=== PATIENT | female | born 2000 | race Caucasian/White ===

== ENCOUNTER 2023-09-12 17:54 | Day surgery (SDC) | payer SELFPAY ==
--- NOTE | ~2023-09-12 | US_ITS ---
EXAMINATION: US ABDOMEN LIMITED CLINICAL INFORMATION: Right upper quadrant pain. COMPARISON: None available. TECHNIQUE: Real-time imaging of the right upper quadrant abdominal viscera. FINDINGS: PANCREAS: Normal. LIVER: Normal. The liver is normal in size. The liver contour is normal. Parenchymal echogenicity is normal. No focal hepatic lesion. There is no intrahepatic biliary duct dilatation seen. GALLBLADDER: Impacted calculi are evident in the gallbladder neck, measuring up to 13 x 12 x 8 mm. The gallbladder wall is thickened up to 4 mm. No pericholecystic edema is detected but there is a positive sonographic Emery sign. COMMON BILE DUCT: Normal in caliber measuring 0.4 cm in diameter. RIGHT KIDNEY: Normal. No hydronephrosis. No renal calculi or focal parenchymal lesions. The kidney measures 11.5 cm in maximum dimension. FREE FLUID: None. US/US abdomen limited IMPRESSION: Cholelithiasis with wall thickening and positive Emery's sign indicative of acute cholecystitis.
[2023-09-12 18:02] VITALS: BP 119/64; PULSE 85; RESP 16; TEMP 36.9; O2SAT 99; BMI 33.3
--- NOTE | 2023-09-12 18:06 | ED.ABDPAIN ---
HPI - Abdominal Pain General Chief Complaint: Abdominal Pain Stated Complaint: R side pain Time Seen by Provider: 09/12/23 22:39 Source: patient Mode of arrival: ambulatory Limitations: no limitations History of Present Illness ED Provider: DR. Wahl HPI narrative: 22-year-old female Came in for evaluation of upper abdominal pain for the past 3 days pain is mostly to the right upper quadrant area, pain is worse with pain, pain has been constant but worse today, associated with nausea and vomiting, no fever, no chills, pain is worse with food. Normal bowel movement and passing flatus, no history of intra-abdominal surgery, no dysuria, no frequency urination, no chance of being . Related Data Allergies Allergy/AdvReac Type Severity Reaction Status Date / Time No Known Allergies Allergy Verified 09/12/23 18:08 [No Known Allergies*] Review of Systems Review of Systems All other systems are reviewed and are negative Constitutional: Reports as per HPI and Reports no additional constitutional complaints Eyes: Reports as per HPI and Reports no additional eye complaints Reports system reviewed and no additional complaints, except as documented Cardiovascular: Reports as per HPI and Reports no additional cardiovascular complaints Respiratory: Reports as per HPI and Reports no additional respiratory complaints Gastrointestinal: Reports as per HPI and Reports no additional gastrointestinal complaints Genitourinary: Reports no additional female genitourinary complaints Musculoskeletal: Reports no additional musculoskeletal complaints Skin/Breast: Reports system reviewed and no additional complaints, except as docu Psychiatric: Reports no additional psychiatric complaints Endocrine: Reports no additional endocrine complaints Hematologic/Lymphatic: Reports no additional hematologic/lymphatic complaints Allergic/Immunologic: Reports no additional allergic/immunologic complaints Reports system reviewed and no additional complaints, except as documented and Reports Abnormal speech present [facility] Social History Social History Smoked in Last 30 Days: No Substance Use Type: Marijuana Advance Directives: No Advance Directives Information Provided: No Do you have a plan to hurt others: No Plan Patient : No Physical Exam ED Vital Signs: Vital Signs - 24 hr 09/12/23 18:02 09/12/23 20:46 09/13/23 02:00 Temperature 98.4 F 98.0 F 97.9 F Pulse Rate 85 70 68 Respiratory Rate 16 20 12 Blood Pressure 119/64 126/81 110/46 L Pulse Oximetry 99 100 98 Oxygen Delivery Method Room Air Room Air Room Air 09/13/23 04:00 09/13/23 08:15 09/13/23 10:42 Temperature 98.5 F 98.0 F 98.3 F Pulse Rate 87 64 58 Respiratory Rate 14 16 14 Blood Pressure 106/49 L 108/54 L 124/54 L Pulse Oximetry 100 95 97 Oxygen Delivery Method Room Air Room Air Room Air 09/13/23 11:39 Temperature 98.3 F Pulse Rate 58 Respiratory Rate 14 Blood Pressure 124/54 L Pulse Oximetry Oxygen Delivery Method BMI result Body Mass Index 33.3 Vital signs have been reviewed and appear to be correct. Blood pressure elevated. Heart rate normal. Respiratory rate normal. Temperature normal. Oxygen saturation normal. Appearance: Alert. Oriented X3. No acute distress. Head: Normal external exam. Normocephalic. Atraumatic. No Schmitt signs noted. No raccoon eyes noted Eyes: PERRLA. EOMI. Conjunctiva and sclera normal. Eyelids normal. ENT: TM's Normal. Pharynx normal. Uvula midline. Moist mucous membranes. No trismus noted. No drooling noted. No muffled voice noted. Neck: Normal inspection. Neck supple. FROM. No adenopathy. Thyroid Normal. No meningeal signs. No neck mass noted. CVS: Normal heart rate and rhythm. Heart sound normal. No murmurs noted. Pulses normal throughout. Respiratory: No respiratory distress. Painless inspiration. Breath sounds normal. No wheezes/rales/rhonchi noted. Chest nontender. No accessory muscle usage noted or decreased air movement noted. Abdomen: Severe right upper quadrant tenderness, no rebound tenderness, no guarding. Bowel sounds normal in all 4 quadrants. No distention noted. No organomegaly noted. No visible injury noted. Back: No CVA tenderness. Full range of motion noted. Skin: Skin warm and dry. Normal skin color. Normal skin turgor. No rashes/lesions/lacerations noted. Extremities: No lower extremity edema. Extremities exhibit normal range of motion. Extremities nontender. Neuro: Oriented X 3. Cranial nerve exam: II-XII are grossly intact No motor deficit. No sensory deficit. Reflexes normal. Course Course Course Narrative: This is an RME: Additional HPI, ROS, PE not included below will be deferred to primary provider. RME assessment and note performed by: Susie Hamilton PA-C This is a [id number], with a hx of hypertension, who presents to the ER with complaints of right upper quadrant x 3 days. Plan: Labs, US Reevaluation(s) Reevaluation #1: 22-year-old female with 3 days of right upper quadrant abdominal pain, physical exam and ultrasound is consistent with acute cholecystitis, the case discussed with Dr. Miller covering for General surgery today who advised to keep the patient in the ER then cholecystectomy in the morning. In pain control, hydration, NPO, antibiotic. Time: 22:52 Medical Decision Making Differential Diagnosis Differential Diagnoses: The differential diagnosis associated with the presentation includes (Otitis, acute cholecystitis, cholelithiasis, kidney stone, UTI, pyelonephritis, electrolyte derangement, severe anemia.) Admission/Observation Consideration of admission/observation: Escalation of care including admission/observation considered Consult Healthcare Provider Management of the patient was discussed with: Skin Lap Bonder (Dr. Miller) Lab Data MDM Lab Attestation statement: I reviewed the patient's lab results. 09/12/23 18:31 09/12/23 18:31 Labs: Lab Results 09/12/23 Range/Units 18:31 WBC 10.0 (4.8-10.8) X10*3/uL RBC 4.25 (4.20-5.50) X10*6/uL Hgb 13.6 (12.0-16.0) g/dl Hct 39.2 (37.0-47.0) % MCV 92.2 (80.0-98.0) fL MCH 32.0 (27.0-33.0) pg MCHC 34.7 (31.0-35.0) g/dl RDW 13.2 (11.0-16.0) % Plt Count 229 (160-400) X10*3/uL MPV 10.6 (9.4-12.3) fL Immature Gran % (Auto) 0.4 (0.0-0.4) % Neut % (Auto) 73.8 H (45-73) % Lymph % (Auto) 17.6 L (20-40) % [place] % (Auto) 5.6 (2-11) % Eos % (Auto) 2.4 (0-4) % Baso % (Auto) 0.2 (0-2) % Lymph # (Auto) 1.8 (1.2-4.9) X10*3/uL [place] # (Auto) 0.6 (0.1-1.2) X10*3/uL Eos # (Auto) 0.2 (0.0-0.4) X10*3/uL Baso # (Auto) 0.0 (0.0-0.2) X10*3/uL Abs Immat Gran (auto) 0.04 H (0.00-0.03) X10*3/uL Absolute Neuts (auto) 7.4 (2.0-8.3) x10*3/uL Absolute Nucleated RBC 0.000 (0.0-0.012) X10*3/uL Nucleated RBC % (auto) 0.0 (0.0-0.2) /100WBC Sodium 140 (135-145) mmol/L Potassium 3.6 (3.3-5.1) mmol/L Chloride 108 (96-108) mmol/L Carbon Dioxide 21 L (22-29) mmol/L Anion Gap 15 (12-20) BUN 16 (9-16) mg/dL Creatinine 0.87 (0.5-1.4) mg/dL Estim Creat Clear Calc 119.9 Estimated GFR > 60 Random Glucose 87 (60-115) mg/dL Calcium 10.6 H (8.4-10.2) mg/dL Magnesium 1.8 (1.6-2.6) mg/dL Total Bilirubin 0.4 (0.0-1.0) mg/dL Direct Bilirubin 0.1 (0.0-0.5) mg/dL AST 14 (5-31) U/L ALT 15 (0-31) U/L Alkaline Phosphatase 72 (39-117) U/L Total Protein 8.0 (6.5-8.0) g/dL Albumin 4.8 (3.5-5.0) g/dL Lipase 19 (8-78) U/L Beta HCG, Quant < 2 mIU/mL Independent Interpretation I performed an independent interpretation of an: Ultrasound (Cholelithiasis with wall thickening and positive Emery's sign indicative of acute cholecystitis.) Radiology Impression Discussion of test interpretation with radiology: I have reviewed the radiologist's reading. Medications Administered Generic Name Dose Route Start Last Admin Trade Name Freq PRN Reason Stop Dose Admin Morphine Sulfate 4 mg 09/13/23 09:48 09/13/23 10:56 Morphine Sulfate 4 Mg/Ml Cartridge IVPUSH 4 mg Q4H PRN Administration Pain, Severe (Pain Scale 7-10) Protocol Ondansetron HCl 4 mg 09/13/23 09:48 09/13/23 10:56 Ondansetron Hcl 4 Mg/2 Ml Vial IVPUSH 4 mg Q6H PRN Administration Nausea and Vomiting Discontinued Medications Generic Name Dose Route Start Last Admin Trade Name Freq PRN Reason Stop Dose Admin Hydromorphone HCl 1 mg 09/13/23 00:37 09/13/23 00:52 Hydromorphone Hcl 1 Mg/Ml Syringe IVPUSH 09/13/23 00:38 1 mg ONCE ONE Administration Protocol Sodium Chloride 1,000 mls @ 999 mls/hr 09/12/23 22:48 09/13/23 00:23 Ns IV 09/12/23 23:48 Infused .Q1H1M ONE Infusion Piperacillin Sod/Tazobactam 50 mls @ 100 mls/hr 09/12/23 22:56 09/12/23 23:54 Sod 3.375 gm/ Sodium Chloride IV 09/12/23 23:25 Infused ONCE ONE Infusion Ketorolac Tromethamine 30 mg 09/12/23 22:48 09/12/23 23:20 Ketorolac Tromethamine 30 Mg/Ml Vial IVPUSH 09/12/23 22:49 30 mg ONCE ONE Administration Morphine Sulfate 2 mg 09/12/23 22:48 09/12/23 23:20 Morphine Sulfate 2 Mg/Ml Cartridge IVPUSH 09/12/23 22:49 2 mg ONCE ONE Administration Protocol Ondansetron HCl 4 mg 09/13/23 00:56 09/13/23 01:00 Ondansetron Hcl 4 Mg/2 Ml Vial IVPUSH 09/13/23 00:57 4 mg ONCE ONE Administration Discharge Plan Discharge Clinical Impression: Abdominal pain, Acute cholecystitis Patient Disposition: Admitted As Inpatient Print Language: Greenlandic
[2023-09-12 18:36] LABS: MANUAL DIFF FLAG NO
[2023-09-12 18:38] LABS: Basophils Percent Auto 0.2 % (0-2); Eosinophils Absolute Auto 0.2 X10*3/uL (0.0-0.4); Eosinophils Percent Auto 2.4 % (0-4); Hematocrit 39.2 % (37.0-47.0); Hemoglobin 13.6 g/dl (12.0-16.0); Imm Gran Abs Auto 0.04 X10*3/uL (0.00-0.03); Imm Gran Pct Auto 0.4 % (0.0-0.4); Lymphocytes Absolute Auto 1.8 X10*3/uL (1.2-4.9); Lymphocytes Percent Auto 17.6 % (20-40); Mean Corpuscular HGB Conc 34.7 g/dl (31.0-35.0); Mean Corpuscular Volume 92.2 fL (80.0-98.0); Mean Platelet Volume 10.6 fL (9.4-12.3); Monocytes Absolute Auto 0.6 X10*3/uL (0.1-1.2); Monocytes Percent Auto 5.6 % (2-11); Neutrophils Absolute Auto 7.4 x10*3/uL (2.0-8.3); Neutrophils Percent Auto 73.8 % (45-73); Platelet Count 229 X10*3/uL (160-400); Red Blood Count 4.25 X10*6/uL (4.20-5.50); Red Cell Distribution Width 13.2 % (11.0-16.0)
[2023-09-12 18:56] LABS: Alanine Aminotransferase 15 U/L (0-31); Albumin Level 4.8 g/dL (3.5-5.0); Alkaline Phosphatase 72 U/L (39-117); Anion Gap 15 (12-20); Aspartate Amino Transferase 14 U/L (5-31); Bilirubin Direct 0.1 mg/dL (0.0-0.5); Bilirubin Total 0.4 mg/dL (0.0-1.0); Blood Urea Nitrogen 16 mg/dL (9-16); Calcium 10.6 mg/dL (8.4-10.2); Carbon Dioxide 21 mmol/L (22-29); Chloride 108 mmol/L (96-108); Creatinine Clr Calc Pharmacy 119.9; Estimated Glomerular Filt Rate > 60; Glucose Random 87 mg/dL (60-115); Lipase 19 U/L (8-78); Magnesium 1.8 mg/dL (1.6-2.6); Potassium 3.6 mmol/L (3.3-5.1); Sodium 140 mmol/L (135-145)
[2023-09-12 19:04] LABS: HCG Quantitative < 2 mIU/mL
[2023-09-12 20:46] VITALS: BP 126/81; PULSE 70; RESP 20; TEMP 36.7; O2SAT 100
[2023-09-12] MEDS: 0.9 % Sodium Chloride 1,000 ML 999 ML IV (23:20)
[2023-09-12] MEDS: Ketorolac Tromethamine 30 MG/ML VIAL IVPUSH (23:20)
[2023-09-12] MEDS: Morphine Sulfate 2 MG/ML CARTRIDGE IVPUSH (23:20)
[2023-09-12] MEDS: Piperacillin Sodium/Tazobactam 3.375 GM in 0.9 % Sodium Chloride 50 ML IV (23:20)
[2023-09-13] VITALS (21 sets, daily range): BP systolic 98–165; BP diastolic 44–93; PULSE 58–96; RESP 6–22; TEMP 36.1–36.9; O2SAT 95–100
[2023-09-13] MEDS: HYDROmorphone HCl 1 MG/ML SYRINGE IVPUSH (00:52)
[2023-09-13] MEDS: ondansetron HCL 4 MG/2 ML VIAL IVPUSH ×3 (01:00→15:32)
--- NOTE | 2023-09-13 08:55 | PM.HPGS ---
History of Present Illness History of Present Illness Date of Service: 09/13/23 Chief complaint: R side pain Narrative: Lillie Drew is a 22 year old female with a history of biliary colic who presents here with similar episode about upper quadrant/epigastric pain. Spring going on for few days time. Because of progression of symptoms he presents to the emergency department. Workup including sonogram demonstrated findings consistent with acute cholecystitis. Patient has lost approximately 70 lb since February with a weight loss program. She otherwise has regular bowel habits. No other GI issues or complaints. She has never been jaundiced before. Chart was reviewed and patient evaluated [facility] Social History Social History Smoked in Last 30 Days: No Substance Use Type: Marijuana Advance Directives: No Advance Directives Information Provided: No Do you have a plan to hurt others: No Plan Patient : No Meds Allergies Allergy/AdvReac Type Severity Reaction Status Date / Time No Known Allergies Allergy Verified 09/12/23 18:08 [No Known Allergies*] Physical Exam Vital Signs: Vital Signs: Last Vital Signs Temp 98.0 F 09/13/23 08:15 Pulse 64 09/13/23 08:15 Resp 16 09/13/23 08:15 BP 108/54 L 09/13/23 08:15 Pulse Ox 95 09/13/23 08:15 O2 Del Method Room Air 09/13/23 08:15 BMI result Body Mass Index 33.3 Eyes: Other: Anicteric Chest: Other: Chest breath sounds bilaterally, HS 1 in 2 GI: Other: Corpulent, soft, marked right upper quadrant tenderness and positive Emery sign Results Results Labs: Short CBC 09/12/23 Range/Units 18:31 WBC 10.0 (4.8-10.8) X10*3/uL Hgb 13.6 (12.0-16.0) g/dl Hct 39.2 (37.0-47.0) % Plt Count 229 (160-400) X10*3/uL BMP 09/12/23 18:31 Sodium 140 Potassium 3.6 Chloride 108 Carbon Dioxide 21 L BUN 16 Creatinine 0.87 Calcium 10.6 H Liver Function 09/12/23 Range/Units 18:31 Total Bilirubin 0.4 (0.0-1.0) mg/dL Direct Bilirubin 0.1 (0.0-0.5) mg/dL AST 14 (5-31) U/L ALT 15 (0-31) U/L Alkaline Phosphatase 72 (39-117) U/L Albumin 4.8 (3.5-5.0) g/dL Assessment and Plan (1) Acute cholecystitis: Status: Acute Plan Risks, benefits, alternatives laparoscopic possible open cholecystectomy reviewed with the patient included but not limited to bleeding, infection, numbness, pain, scarring, bowel or bile duct injury or leak and the patient wished to proceed. All questions answered. Arrangements were made for this for today as an add on case Quality Stroke Does the patient have a stroke diagnosis?: No VTE Prior VTE?: No VTE Risk Level:: Surgical - low VTE Device Contraindication: Treatment Not Indicated VTE Drug Contraindication: Treatment Not Indicated Procedures Date of Service Date of Service: 09/13/23
[2023-09-13] MEDS: Morphine Sulfate 4 MG/ML CARTRIDGE IVPUSH (10:56)
--- NOTE | 2023-09-13 11:38 | PC.NURSE ---
RN to RN report given to pre-op RN, will tiger with OR time.
--- NOTE | 2023-09-13 13:09 | HO.ANESPROP2 ---
[facility], [facility] Active Problems Active Problems: All Active Problems Acute cholecystitis (Acute) Abdominal pain (Acute) Past Medical History Medical History (Updated 09/13/23 @ 12:37 by Balbina Joyce) Arrhythmia Functional capacity: independent ambulation Patient : No Family History Family history of problems with anesthesia: No Surgical History History of Problems with Anesthesia: No Social History Social History Patient Tobacco Use Status: Never used Tobacco Smoked in Last 30 Days: No Use of substances other than those prescribed or required for medical reasons: Yes Substance Use Type: Marijuana Are you DNR?: No Advance Directives: No Advance Directives Information Provided: No Do you have a plan to hurt others: No Plan Patient : No Meds Allergies Allergy/AdvReac Type Severity Reaction Status Date / Time No Known Allergies Allergy Verified 09/12/23 18:08 [No Known Allergies*] Active Medications: Current Medications Morphine Sulfate (Morphine Sulfate 4 Mg/Ml Cartridge) 4 mg IVPUSH Q4H PRN; Protocol PRN Reason: Pain, Severe (Pain Scale 7-10) Last Admin: 09/13/23 10:56 Dose: 4 mg Ondansetron HCl (Ondansetron Hcl 4 Mg/2 Ml Vial) 4 mg IVPUSH Q6H PRN PRN Reason: Nausea and Vomiting Last Admin: 09/13/23 10:56 Dose: 4 mg Exam Height,Weight and Vital Signs: Height 5 ft 7 in Weight 96.5 kg Last Vital Signs Temp 97.3 F 09/13/23 12:47 Pulse 60 09/13/23 12:47 Resp 16 09/13/23 12:47 BP 137/91 H 09/13/23 12:47 Pulse Ox 99 09/13/23 12:47 O2 Del Method Room Air 09/13/23 12:00 Pertinent Lab Results Pertinent Lab Results: Laboratory Tests 09/12/23 18:31 WBC 10.0 RBC 4.25 Hgb 13.6 Hct 39.2 MCV 92.2 MCH 32.0 MCHC 34.7 RDW 13.2 Plt Count 229 MPV 10.6 Immature Gran % (Auto) 0.4 Neut % (Auto) 73.8 H Lymph % (Auto) 17.6 L [place] % (Auto) 5.6 Eos % (Auto) 2.4 Baso % (Auto) 0.2 Lymph # (Auto) 1.8 [place] # (Auto) 0.6 Eos # (Auto) 0.2 Baso # (Auto) 0.0 Abs Immat Gran (auto) 0.04 H Absolute Neuts (auto) 7.4 Absolute Nucleated RBC 0.000 Nucleated RBC % (auto) 0.0 Sodium 140 Potassium 3.6 Chloride 108 Carbon Dioxide 21 L Anion Gap 15 BUN 16 Creatinine 0.87 Estim Creat Clear Calc 119.9 Estimated GFR > 60 Random Glucose 87 Calcium 10.6 H Magnesium 1.8 Total Bilirubin 0.4 Direct Bilirubin 0.1 AST 14 ALT 15 Alkaline Phosphatase 72 Total Protein 8.0 Albumin 4.8 Lipase 19 Beta HCG, Quant < 2 Airway Mallampati Class: III TM Dist: >3cm Neck ROM: Full Heart: RRR Lungs: CTA Assessment and Plan Assessment Anesthesia Assessment: Anesthesia Plan Discussed and Smoking Cess. Discussed Final Anesthetic Review Family History of Problems with Anesthesia: No History of Problems with Anesthesia: No NPO: Yes ASA Class: III Final Preanesthetic Review: Meds/Allgs Chart Reviewed, Consent Obtained/Reviewed and Anes Risks/Benef Reviewed Patient Risk: Intermediate Procedure Risk: Intermediate Anesthetic Plan Anesthetic Plan: GA Disposition: Standard PACU
--- NOTE | 2023-09-13 15:09 | W.PM.OPN ---
Operative Note Operative Note Date of Service: 09/13/23 Narrative: Preoperative diagnosis: [] Acute cholecystitis Postop diagnosis: [] The same Procedure [] laparoscopic cholecystectomy Surgeon: [] Paul Closing Supervisor: [] Annie Type of Anesthesia: [] General Indication for surgery: [] Markedly edematous turgid gallbladder with omental adhesions to it. Intrahepatic gallbladder. Corpulent abdomen. Findings: [] Patient brought to the operating room, placed on operative table supine position, after an adequate level of general anesthesia was induced, the patient's abdomen was prepped and draped in usual sterile fashion. Using a supraumbilical curvilinear incision, Sears technique was used to insufflate abdominal cavity to 15 mm of CO2. Upper midline and right subcostal ports were placed under direct laparoscopic view, and findings were as noted above. Gallbladder was initially decompressed with an aspirating device because of its marked turgidity. It was then grasped with laparoscopic graspers, and retracted superiorly and laterally. Omental adhesions were swept off the hilum where the cystic artery and cystic duct were each identified, circumferentially skeletonized, traced directly into the gallbladder, and critical view obtained. Common bile duct was also identified and preserved throughout the procedure. Cystic artery and cystic duct were each clipped proximally x2, distally x1, and transected gallbladder was then cauterized in the gallbladder fossa using Bovie. Specimen was placed in an Endo-Catch bag, a retrieved through the umbilical port. Abdominal cavity was copiously irrigated, and secured hemostasis. All ports removed under direct laparoscopic view. Wounds were closed in the following manner; umbilical wound has fascia reapproximated using interrupted 0 Vicryl sutures. Skin wounds were closed in subcuticular 4-0 Vicryl sutures followed by Steri-Strips and sterile dressings. Wounds were infiltrated 0.5% Marcaine at completion. Sponge, needle, and instrument counts reported correct. Patient tolerated the procedure well and emerged from anesthesia stable condition. EBL minimal
[2023-09-13] MEDS: fentaNYL citrate/PF 100 MCG/2 ML VIAL 25 MCG IVPUSH ×4 (15:25→15:50)
[2023-09-13] MEDS: HYDROmorphone HCl 0.5 MG/0.5 ML SYRINGE 0.25 MG IVPUSH ×4 (15:35→16:40)
[2023-09-13] MEDS: droPERidol 5 MG/2 ML VIAL 0.625 MG IVPUSH (15:42)
[2023-09-13] MEDS: Ketorolac Tromethamine 15 MG/ML VIAL IVPUSH (16:00)
== END 2023-09-13 17:29 | disposition home or self-care (01) ==
LOC: HO.ED 09-13 11:54 → HO.SSS 09-13 13:15
PROVIDERS: Physician Assistant Medical; Emergency Provider Emergency Medicine Emergency Medical Services; Visit Provider Surgery
PROC: 0FT44ZZ Resection of Gallbladder, Percutaneous Endoscopic Approach (ICD-10-PCS; CPT 47562; principal; 2023-09-13 14:00)
DX: K80.00 Calculus of gallbladder with acute cholecystitis without obstruction (principal); R10.10 Upper abdominal pain, unspecified; I10 Essential (primary) hypertension
CPT/HCPCS: 47562; 36415; 76705; 80048; 80076; 83690; 83735; 84702; 85025; 88304; 96361; 96365; 96366; 96375; 99285; J0131; J0690; J1100; J1170; J1790; J1885; J2250; J2270; J2405; J2543; J2704; J2795; J3010

== ENCOUNTER → 2023-09-12 18:28 | Outpatient (BNV) | payer SELFPAY | PROVIDERS: Emergency Provider Emergency Medicine Emergency Medical Services; Visit Provider Surgery | DX: K81.0 Acute cholecystitis (principal) | CPT/HCPCS: 99285 ==

== ENCOUNTER → 2023-09-13 13:14 | Outpatient (BNV) | payer SELFPAY | PROVIDERS: Emergency Provider Emergency Medicine Emergency Medical Services; Visit Provider Surgery | DX: K81.0 Acute cholecystitis (principal) | CPT/HCPCS: 47562 ==

== ENCOUNTER 2023-09-14 04:38 | Observation (INO) | payer SELFPAY ==
[2023-09-14] VITALS (9 sets, daily range): BP systolic 108–135; BP diastolic 51–74; PULSE 58–84; RESP 16–20; TEMP 36–37.1; O2SAT 94–100; BMI 33.3; BMI 34.0
--- NOTE | ~2023-09-14 | XR_ITS ---
EXAMINATION: XR CHEST CLINICAL INFORMATION: Right pneumothorax COMPARISON: Abdomen CT from 09/14/2023. CXR from 02/29/2016. TECHNIQUE: Frontal view of the chest was obtained. FINDINGS: Lungs are well expanded and clear. Cardiac silhouette has normal size and contour. Pulmonary vascular pattern is normal. Trace right apical pneumothorax is visualized. Again noted is a postoperative pneumoperitoneum. Skeletal structures are unremarkable. XR/XR chest 1V IMPRESSION: * Trace right apical pneumothorax. * Postoperative pneumoperitoneum.
--- NOTE | ~2023-09-14 | XR_ITS ---
EXAMINATION: XR CHEST CLINICAL INFORMATION: Follow-up right pneumothorax. COMPARISON: None available. TECHNIQUE: Frontal view of the chest was obtained. FINDINGS: A less than 5% right apical pneumothorax appears unchanged compared with one day prior. Mild elevation of right hemidiaphragm. Question trace right subdiaphragmatic air, improved compared with one day prior. Status post cholecystectomy. No other significant abnormality is noted involving the heart, lungs, mediastinum, bony thorax or soft tissues. XR/XR chest 1V IMPRESSION: Findings as above.
--- NOTE | ~2023-09-14 | CT_ITS ---
EXAMINATION: CT ABDOMEN AND PELVIS WITHOUT CONTRAST CLINICAL INFORMATION: Abdominal pain. Postoperative for 2 days. COMPARISON: Ultrasound exam from 09/12/2023. TECHNIQUE: Multidetector volumetric imaging was performed from the superior aspect of the liver through the pubic symphysis. Sagittal and coronal reformatted images were obtained on the technologist's workstation. This CT examination was performed using dose optimization techniques as appropriate, variously including the following: *Automated exposure control *Adjustment of mA and/or kV according to patient size (this includes techniques or standardized protocols for targeted exams where dose is matched to indication/reason for exam; i.e. extremities or head) *Use of iterative reconstruction technique DLP: 762 mGy-cm FINDINGS: LUNG BASES: Small right pneumothorax is partially included in [id number]. HEPATOBILIARY: Liver has normal size, shape, and attenuation. Gallbladder is surgically absent. As expected in a postoperative patient, a trace amount of fluid and mild fat stranding are seen at the gallbladder fossa. No dilated bile ducts. PANCREAS: No edema, pancreatic ductal dilatation or mass. SPLEEN: Normal. ADRENAL GLANDS: Normal. KIDNEYS AND URETERS: Kidneys have normal size and cortical thickness. No perinephric fluid collection, urolithiasis or hydroureteronephrosis. BLADDER: Normal. BOWEL AND PERITONEUM: Stomach and small bowel are unremarkable. No dilated loops. The appendix is normal. No overt colonic wall thickening or mesenteric fat stranding. No abdominal abscess or hemoperitoneum. Small volume of postoperative pneumoperitoneum is present. ABDOMINAL WALL: There is postoperative edema of the midline abdominal wall, most pronounced around the region of the umbilicus. Postoperative foci of gas are present in the subcutaneous tissues of the abdominal wall. VASCULATURE: Unremarkable. LYMPH NODES: No pathologic sized lymph nodes in the abdomen or pelvis. No inguinal lymphadenopathy. PELVIC VISCERA: The anteflexed, anteverted uterus is normal. Ovaries appear to be normal for age. The largest visible follicle in the left ovary is approximately 1.5 cm. MUSCULOSKELETAL: Old healed fracture right anterolateral seventh rib. CT/CT abdomen pelvis wo IV con IMPRESSION: * Small volume of pneumoperitoneum is present in this postoperative patient. * There is no abnormal fluid collection or hematoma in the right upper quadrant, status post cholecystectomy. * A small right-sided pneumothorax is partially included in [id number]. Recommend chest radiographic follow-up. The critical test result of the right-sided pneumothorax was discussed with Rebekah Davis MD, at 9:02 AM on 09/14/2023 and it was ascertained that the content and the importance of the findings was understood at the time of the direct communication.
--- NOTE | 2023-09-14 05:13 | PC.NURSE ---
pt moaning and yelling, pt given a pillow to hold against her abd, to help with the pain, informed pt, not to hold her breathe, it made the pain worse.
--- NOTE | 2023-09-14 05:35 | PC.NURSE ---
pt vomited, green bile, pt dry heaving, when not vomiting.
[2023-09-14] MEDS: ondansetron HCL 4 MG/2 ML VIAL IVPUSH (05:40)
--- NOTE | 2023-09-14 05:46 | PC.NURSE ---
pt medicated for vomiting, pt now has the hiccups
--- NOTE | 2023-09-14 05:55 | ED_ITS ---
HPI - Abdominal Pain General Chief Complaint: Abdominal Pain Stated Complaint: post op pain, diff breathing Time Seen by Provider: 09/14/23 05:54 Source: patient Mode of arrival: ambulatory Limitations: no limitations History of Present Illness ED Provider: kai UP narrative: Patient is status post cholecystectomy done yesterday at 14:00 went home woke up started vomiting since 2229 with increased abdominal pain very uncomfortable on arrival no fever no chills Related Data Previous Rx's ?Medication ?Instructions ?Recorded hydrocodone 5 mg-acetaminophen 325 1 tab PO Q4-6H PRN pain #30 tabs 09/13/23 mg tablet Allergies Allergy/AdvReac Type Severity Reaction Status Date / Time No Known Allergies Allergy Verified 09/14/23 04:47 [No Known Allergies*] Review of Systems Review of Systems Yes all other systems are reviewed and are negative [facility] Past Medical History Medical History Ovarian cyst Arrhythmia Social History Social History Patient Tobacco Use Status: Never used Tobacco Smoked in Last 30 Days: No Use of substances other than those prescribed or required for medical reasons: Yes Substance Use Type: Marijuana Advance Directives: No Patient : No Physical Exam ED Vital Signs: Vital Signs - 24 hr 09/14/23 04:41 09/14/23 06:33 Temperature 97.7 F 98.7 F Pulse Rate 69 63 Respiratory Rate 20 16 Blood Pressure 125/74 135/73 Pulse Oximetry 100 97 Oxygen Delivery Method Room Air Room Air BMI result Body Mass Index 33.3 Appearance: Alert. Oriented X3. In moderate distress. Eyes: No pallor or icterus ENT: Pharynx normal. Oral Mucosa moist Neck: Normal inspection. Neck supple. CVS: Normal heart rate and rhythm. Pulses normal. Respiratory: No respiratory distress. Equal air entry bilateral, no wheezing/rales/rhonchi Abdomen: Soft diffuse tenderness no rebound tenderness or guarding Bowel sounds are present, no mass palpable, no CVA tenderness Skin: Skin warm and dry. Normal skin color. Normal skin turgor. Extremities: No lower extremity edema. No calf tenderness Neuro: Oriented X 3. Medical Decision Making Medical Decision Making [facility] Narrative: Patient is post cholecystectomy with diffuse abdominal pain with vomiting labs are stable with slight leukocytosis patient has had repeated episodes of vomiting CT scan report is pending but I could not visualize anything acute patient has received IV fluids symptomatic treatment for vomiting and pain patient is signed out to Dr. Hankins Differential Diagnosis Differential Diagnoses: The differential diagnosis associated with the presentation includes Acute pancreatitis/gastritis Lab Data MDM Lab Attestation statement: I reviewed the patient's lab results. 09/14/23 06:32 09/14/23 06:26 Labs: Lab Results 09/14/23 09/14/23 Range/Units 06:26 06:32 WBC 15.4 H (4.8-10.8) X10*3/uL RBC 3.95 L (4.20-5.50) X10*6/uL Hgb 12.8 (12.0-16.0) g/dl Hct 36.1 L (37.0-47.0) % MCV 91.4 (80.0-98.0) fL MCH 32.4 (27.0-33.0) pg MCHC 35.5 H (31.0-35.0) g/dl RDW 13.0 (11.0-16.0) % Plt Count 195 (160-400) X10*3/uL MPV 11.0 (9.4-12.3) fL Immature Gran % (Auto) 0.8 H (0.0-0.4) % Neut % (Auto) 85.7 H (45-73) % Lymph % (Auto) 5.5 L (20-40) % [place] % (Auto) 7.9 (2-11) % Eos % (Auto) 0.0 (0-4) % Baso % (Auto) 0.1 (0-2) % Lymph # (Auto) 0.8 L (1.2-4.9) X10*3/uL [place] # (Auto) 1.2 (0.1-1.2) X10*3/uL Eos # (Auto) 0.0 (0.0-0.4) X10*3/uL Baso # (Auto) 0.0 (0.0-0.2) X10*3/uL Abs Immat Gran (auto) 0.13 H (0.00-0.03) X10*3/uL Absolute Neuts (auto) 13.2 H (2.0-8.3) x10*3/uL Absolute Nucleated RBC 0.000 (0.0-0.012) X10*3/uL Nucleated RBC % (auto) 0.0 (0.0-0.2) /100WBC Sodium 140 (135-145) mmol/L Potassium 3.6 (3.3-5.1) mmol/L Chloride 108 (96-108) mmol/L Carbon Dioxide 20 L (22-29) mmol/L Anion Gap 16 (12-20) BUN 10 (9-16) mg/dL Creatinine 0.76 (0.5-1.4) mg/dL Estim Creat Clear Calc 137.2 Estimated GFR > 60 Random Glucose 133 H (60-115) mg/dL Calcium 10.0 (8.4-10.2) mg/dL Total Bilirubin 0.8 (0.0-1.0) mg/dL AST 73 H (5-31) U/L ALT 97 H (0-31) U/L Alkaline Phosphatase 88 (39-117) U/L Total Protein 7.2 (6.5-8.0) g/dL Albumin 4.3 (3.5-5.0) g/dL Lipase 9 (8-78) U/L Medications Administered Discontinued Medications Generic Name Dose Route Start Last Admin Trade Name Freq PRN Reason Stop Dose Admin Sodium Chloride 1,000 mls @ 999 mls/hr 09/14/23 05:56 09/14/23 06:06 Ns IV 09/14/23 06:56 999 mls/hr .Q1H1M ONE Administration Morphine Sulfate 4 mg 09/14/23 05:56 09/14/23 06:05 Morphine Sulfate 4 Mg/Ml Cartridge IVPUSH 09/14/23 05:57 4 mg ONCE ONE Administration Protocol Ondansetron HCl 4 mg 09/14/23 05:34 09/14/23 05:40 Ondansetron Hcl 4 Mg/2 Ml Vial IVPUSH 09/14/23 05:35 4 mg ONCE ONE Administration Discharge Plan Discharge Clinical Impression: Abdominal pain Patient Disposition: Still a Patient Prescriptions: No Action hydrocodone-acetaminophen 5-325 mg tablet 1 tab PO Q4-6H PRN (Reason: pain) Qty: 30 0RF Rx Instructions: Partial Fill upon patient request. Print Language: [place] Irish
[2023-09-14] MEDS: Morphine Sulfate 4 MG/ML CARTRIDGE IVPUSH ×2 (06:05→07:18)
[2023-09-14] MEDS: 0.9 % Sodium Chloride 1,000 ML 999 ML IV (06:06)
[2023-09-14 06:36] LABS: MANUAL DIFF FLAG NO
[2023-09-14 06:44] LABS: Basophils Percent Auto 0.1 % (0-2); Hematocrit 36.1 % (37.0-47.0); Hemoglobin 12.8 g/dl (12.0-16.0); Imm Gran Abs Auto 0.13 X10*3/uL (0.00-0.03); Imm Gran Pct Auto 0.8 % (0.0-0.4); Lymphocytes Absolute Auto 0.8 X10*3/uL (1.2-4.9); Lymphocytes Percent Auto 5.5 % (20-40); Mean Corpuscular HGB Conc 35.5 g/dl (31.0-35.0); Mean Corpuscular Hemoglobin 32.4 pg (27.0-33.0); Mean Corpuscular Volume 91.4 fL (80.0-98.0); Monocytes Absolute Auto 1.2 X10*3/uL (0.1-1.2); Monocytes Percent Auto 7.9 % (2-11); Neutrophils Absolute Auto 13.2 x10*3/uL (2.0-8.3); Neutrophils Percent Auto 85.7 % (45-73); Platelet Count 195 X10*3/uL (160-400); Red Blood Count 3.95 X10*6/uL (4.20-5.50); White Blood Count 15.4 X10*3/uL (4.8-10.8)
[2023-09-14 06:51] LABS: Alanine Aminotransferase 97 U/L (0-31); Albumin Level 4.3 g/dL (3.5-5.0); Alkaline Phosphatase 88 U/L (39-117); Anion Gap 16 (12-20); Aspartate Amino Transferase 73 U/L (5-31); Bilirubin Total 0.8 mg/dL (0.0-1.0); Blood Urea Nitrogen 10 mg/dL (9-16); Carbon Dioxide 20 mmol/L (22-29); Chloride 108 mmol/L (96-108); Creatinine Clr Calc Pharmacy 137.2; Estimated Glomerular Filt Rate > 60; Glucose Random 133 mg/dL (60-115); Lipase 9 U/L (8-78); Potassium 3.6 mmol/L (3.3-5.1); Sodium 140 mmol/L (135-145); Total Protein 7.2 g/dL (6.5-8.0)
--- NOTE | 2023-09-14 06:54 | PC.NURSE ---
report given to Dior MELTON
[2023-09-14] MEDS: LORazepam 2 MG/ML VIAL IVPUSH (07:19)
--- NOTE | 2023-09-14 07:27 | PC.NURSE ---
at bedside, patient awoke have upper abdominal pain and burning in her throat. Medicated as ordered per apr, awaiting improvement in symptoms
[2023-09-14] MEDS: Famotidine/PF 20 MG/2 ML VIAL IVPUSH (08:01)
[2023-09-14] MEDS: Lactated Ringers 1,000 ML 125 ML IVCONT ×2 (08:01→17:41)
--- NOTE | 2023-09-14 09:53 | PM.HPGS ---
History of Present Illness History of Present Illness Date of Service: 09/14/23 Chief complaint: post op pain Narrative: Lillie Drew is a 22 year old female with PMH of hypertension who underwent laparoscopic cholecystectomy yesterday for acute cholecystitis. The procedure itself was uncomplicated and she was discharged to home following. She reports severe pain at the umbilical and epigastric incision sites following the procedure. She took the oral narcotic with only partial relief of the pain for an hour. She then developed severe pain and and nausea and multiple episodes of vomiting which further exacerbated the pain. She had no improvement in her symptoms throughout the night which prompted her to seek care in the ED. Work up included CBC, BMP, LFTs which was significant for a leukocytosis of 15.4. Total bilirubin normal. CT scan abd/pelvis showed no abnormal fluid collection in the right upper quadrant, status post cholecystectomy, small right-sided pneumothorax is partially included in [id number]. She has not been able to keep down any PO intake. She continues to c/o severe pain and is unable to take deep breaths due to pain. She denies overt shortness of breath, cough. She was able to ambulate but reports difficulty due to pain. She denies hematemesis, diarrhea, fevers, chills, yellowing o the skin, back pain. Review of Systems Constitutional: Constitutional: Denies chills and Denies fever(s) ENT: Denies dizziness Cardiovascular: Cardiovascular: Denies chest pain, Denies palpitations and Denies dyspnea Respiratory: Respiratory: Denies cough and Denies dyspnea Gastrointestinal: Gastrointestinal: Reports as per HPI Genitourinary: Genitourinary: Denies dysuria Integumentary/Breasts: Skin/Breast: Denies rash and Denies jaundice Neurologic: Denies dizziness Endocrine: Endocrine: Denies palpitations [facility] Past Medical History Medical History Ovarian cyst Arrhythmia Social History Social History Patient Tobacco Use Status: Never used Tobacco Smoked in Last 30 Days: No Use of substances other than those prescribed or required for medical reasons: Yes Substance Use Type: Marijuana Advance Directives: No Patient : No Meds Allergies Allergy/AdvReac Type Severity Reaction Status Date / Time No Known Allergies Allergy Verified 09/14/23 04:47 [No Known Allergies*] Active Medications: Current Medications Calcium Carbonate (Calcium Carbonate 750 Mg Tab.Chew) 750 mg PO Q4H PRN PRN Reason: Heartburn Chlorpromazine HCl (Chlorpromazine Hcl 25 Mg Tablet) 25 mg PO ONCE ONE Stop: 09/14/23 09:53 Docusate Sodium (Docusate Sodium 100 Mg Capsule) 100 mg PO BID [facility] Hydromorphone HCl (Hydromorphone Hcl 1 Mg/Ml Syringe) 0.5 mg IVPUSH Q4H PRN; Protocol PRN Reason: Pain, Severe (Pain Scale 7-10) Lactated Ringer's (Lr) 1,000 mls @ 125 mls/hr IVCONT .Q8H [facility] Last Admin: 09/14/23 08:01 Dose: 125 mls/hr Acetaminophen (Ofirmev) 1,000 mg in 100 mls @ 400 mls/hr IV Q6H [facility] Magnesium Hydroxide (Milk Of Magnesia 30 Ml Oral.Susp) 30 ml PO DAILY PRN PRN Reason: Constipation Melatonin (Melatonin 3 Mg Tablet) 6 mg PO BEDTIME PRN PRN Reason: Insomnia Morphine Sulfate (Morphine Sulfate 4 Mg/Ml Cartridge) 4 mg IVPUSH Q2H PRN; Protocol PRN Reason: Pain, Severe (Pain Scale 7-10) Ondansetron HCl (Ondansetron Hcl 4 Mg/2 Ml Vial) 4 mg IVPUSH Q8H PRN PRN Reason: Nausea and Vomiting Oxycodone HCl (Oxycodone Hcl Immed Release 5 Mg Tablet) 5 mg PO Q4H PRN PRN Reason: Pain, Moderate(Pain Scale 4-6) Promethazine HCl (Promethazine Hcl 25 Mg Tablet) 25 mg PO Q6H PRN PRN Reason: Nausea Sodium Chloride (0.9 % Sodium Chloride Flush 3 Ml Syringe) 3 ml IVFLUSH QSHIFT [facility] Physical Exam Vital Signs: Vital Signs: Last Vital Signs Temp 97.9 F 09/14/23 08:53 Pulse 58 09/14/23 08:53 Resp 16 09/14/23 08:53 BP 120/59 L 09/14/23 08:53 Pulse Ox 94 09/14/23 08:53 O2 Del Method Room Air 09/14/23 08:53 BMI result Body Mass Index 33.3 Const: Other: uncomfortable appearing General: no acute distress and alert Orientation/consciousness: patient oriented x3 Resp: Effort & Inspection: normal respiratory effort, able to speak in complete sentences, no cough, no respiratory distress and no use of accessory muscles Cardio: Rate: abnormal rate GI: Other: umbilical incision with moderate surrounding ecchymosis, dried sanguineous drainage on dressing remainder of dressing clean and intact Inspection: No distended Palpation (GI): Soft to palpation, Tenderness to palpation present (GI) (incisional ) and no guarding Percussion: Yes normal to percussion Skin: General skin exam: no rashes or lesions noted and no jaundice Neuro: General: patient oriented x3 and moves all extremities Results Results Labs: Short CBC 09/14/23 Range/Units 06:32 WBC 15.4 H (4.8-10.8) X10*3/uL Hgb 12.8 (12.0-16.0) g/dl Hct 36.1 L (37.0-47.0) % Plt Count 195 (160-400) X10*3/uL BMP 09/14/23 06:26 Sodium 140 Potassium 3.6 Chloride 108 Carbon Dioxide 20 L BUN 10 Creatinine 0.76 Calcium 10.0 Liver Function 09/14/23 Range/Units 06:26 Total Bilirubin 0.8 (0.0-1.0) mg/dL AST 73 H (5-31) U/L ALT 97 H (0-31) U/L Alkaline Phosphatase 88 (39-117) U/L Albumin 4.3 (3.5-5.0) g/dL Abdomen CT scan report/results: report reviewed and image reviewed Assessment and Plan (1) S/P laparoscopic cholecystectomy: Status: Acute (2) Post-operative pain: Status: Acute (3) Pneumothorax on right: Status: Acute Plan Lillie Drew is a 22 year old female one day s/p uneventful laparoscopic cholecystectomy yesterday for acute cholecystitis presenting back to the ED with uncontrolled incisional pain, nausea and vomiting. CT scan abd/pelvis was reviewed- normal post operative changes, ?right pneumothorax. Bilirubin is normal. She is overall nontoxic appearing. Will admit to the surgical service for further pain control, IVF, antiemetics. She is hemodynamically stable and has no significant respiratory symptoms. Will obtain CXR for the possible pneumothorax which is likely related to retching instead of procedural. Incentive spirometer encouraged, ambulation as tolerated. Leukocytosis likely reactive from surgery, vomiting. Quality Stroke Does the patient have a stroke diagnosis?: No VTE Prior VTE?: No VTE Risk Level:: Medical - low VTE Device Contraindication: N/A - Device Ordered VTE Drug Contraindication: Treatment Not Indicated Procedures Date of Service Date of Service: 09/14/23
[2023-09-14] MEDS: chlorproMAZINE HCl 25 MG TABLET PO (10:46)
[2023-09-14] MEDS: Acetaminophen 1,000 MG/100 ML PIGGYBACK 400 MG IV ×3 (10:46→20:47)
--- NOTE | 2023-09-14 11:46 | PHA.MEDREC ---
Addendum entered by Jose Martin Mac RPh 09/14/23 15:09: reviewed by [facility] Original Note: Pharmacy Consult ? Medication Reconciliation Pharmacy has completed the medication reconciliation. Spoke to patient to confirm med list. Patient states she takes Lisinopril 2.5 mg daily, however there is no claim. When asked where she fill patient states she get it filled in [place] pharmacy at [phone]. tried calling the pharmacy but then phone number was not in service.
--- NOTE | 2023-09-14 15:24 | PC.NURSE ---
report to overflow
[2023-09-14] MEDS: HYDROmorphone HCl 1 MG/ML SYRINGE 0.5 MG IVPUSH (17:47)
[2023-09-14] MEDS: 0.9 % Sodium Chloride Flush 3 ML SYRINGE IVFLUSH (17:49)
[2023-09-14] MEDS: Promethazine HCL 25 MG TABLET PO (17:59)
[2023-09-14] MEDS: Docusate Sodium 100 MG CAPSULE PO (20:47)
[2023-09-15] MEDS: HYDROmorphone HCl 1 MG/ML SYRINGE 0.5 MG IVPUSH ×2 (02:23→17:37)
[2023-09-15] MEDS: Lactated Ringers 1,000 ML 125 ML IVCONT (02:28)
[2023-09-15] MEDS: Acetaminophen 1,000 MG/100 ML PIGGYBACK 400 MG IV ×2 (03:19→11:48)
[2023-09-15 04:00] VITALS: BP 128/67; PULSE 58; RESP 16; TEMP 36.5; O2SAT 100
[2023-09-15 08:10] VITALS: BP 149/98; PULSE 80; RESP 18; TEMP 36.3; O2SAT 96
[2023-09-15] MEDS: ondansetron HCL 4 MG/2 ML VIAL IVPUSH ×2 (08:20→17:38)
--- NOTE | 2023-09-15 08:32 | P.PNGS_ITS ---
Subjective Subjective Date of Service: 09/15/23 Interval history: Feels improved this morning. Was able to tolerated solid food yesterday. Pain has been controlled. Able to take deep breaths. Physical Exam 2 Vital Signs: Vital Signs: Last Vital Signs Temp 97.4 F 09/15/23 08:10 Pulse 80 09/15/23 08:10 Resp 18 09/15/23 08:10 BP 149/98 H 09/15/23 08:10 Pulse Ox 96 09/15/23 08:10 O2 Del Method Room Air 09/15/23 08:10 BMI result Body Mass Index 34.0 Const: General: comfortable, no acute distress and alert O rientation/consciousness: patient oriented x3 Resp: Effort & Inspection: normal respiratory effort GI: Inspection: No distended and Yes incision (clean, mild umbilical ecchymosis ) Palpation (GI): Soft to palpation, Tenderness to palpation present (GI) (mild incisional) and no guarding Skin: General skin exam: no rashes or lesions noted and no jaundice Neuro: General: patient oriented x3 and moves all extremities Objective Data Active Medications Calcium Carbonate (Calcium Carbonate 750 Mg Tab.Chew) 750 mg PO Q4H PRN PRN Reason: Heartburn Docusate Sodium (Docusate Sodium 100 Mg Capsule) 100 mg PO BID [facility] Last Admin: 09/14/23 20:47 Dose: 100 mg Documented By: PETER Hydromorphone HCl (Hydromorphone Hcl 1 Mg/Ml Syringe) 0.5 mg IVPUSH Q4H PRN; Protocol PRN Reason: Pain, Severe (Pain Scale 7-10) Last Admin: 09/15/23 02:23 Dose: 0.5 mg Documented By: PETER Lactated Ringer's (Lr) 1,000 mls @ 125 mls/hr IVCONT .Q8H [facility] Last Admin: 09/15/23 02:28 Dose: 125 mls/hr Documented By: PETER Acetaminophen (Ofirmev) 1,000 mg in 100 mls @ 400 mls/hr IV Q6H [facility] Last Infusion: 09/15/23 03:35 Dose: Infused Documented By: PETER Magnesium Hydroxide (Milk Of Magnesia 30 Ml Oral.Susp) 30 ml PO DAILY PRN PRN Reason: Constipation Melatonin (Melatonin 3 Mg Tablet) 6 mg PO BEDTIME PRN PRN Reason: Insomnia Morphine Sulfate (Morphine Sulfate 4 Mg/Ml Cartridge) 4 mg IVPUSH Q2H PRN; Protocol PRN Reason: Pain, Severe (Pain Scale 7-10) Ondansetron HCl (Ondansetron Hcl 4 Mg/2 Ml Vial) 4 mg IVPUSH Q8H PRN PRN Reason: Nausea and Vomiting Last Admin: 09/15/23 08:20 Dose: 4 mg Documented By: DHEERAJ Oxycodone HCl (Oxycodone Hcl Immed Release 5 Mg Tablet) 5 mg PO Q4H PRN PRN Reason: Pain, Moderate(Pain Scale 4-6) Promethazine HCl (Promethazine Hcl 25 Mg Tablet) 25 mg PO Q6H PRN PRN Reason: Nausea Last Admin: 09/14/23 17:59 Dose: 25 mg Documented By: TAMMIE Sodium Chloride (0.9 % Sodium Chloride Flush 3 Ml Syringe) 3 ml IVFLUSH QSHIFT [facility] Last Admin: 09/15/23 08:22 Dose: Not Given Documented By: DHEERAJ Non-Admin Reason: IV Running Labs 09/14/23 06:32 09/14/23 06:26 Procedures Date of Service Date of Service: 09/15/23 Progress Note: A&P Assessment and plan (1) S/P laparoscopic cholecystectomy: Status: Acute (2) Post-operative pain: Status: Acute (3) Pneumothorax on right: Status: Acute Assessment and Plan: Trace apical right pneumo persists. She denies respiratory symptoms and is hemodynamically stable. OOB and incentive spirometer use encouraged. Continue to monitor. Plan Clinically appearing well and abd is benign. Encouraged oral analgesics today. If comfortable on oral pain meds and tolerating solid diet, stable for dc to home later today. Time Spent With Patient Time: Total time managing care of this patient today ____ minutes. Quality Stroke Does the patient have a stroke diagnosis?: No VTE Prior VTE?: No VTE Risk Level:: Medical - low VTE Device Contraindication: N/A - Device Ordered VTE Drug Contraindication: Treatment Not Indicated
[2023-09-15] MEDS: Docusate Sodium 100 MG CAPSULE PO ×2 (09:59→19:05)
[2023-09-15] MEDS: oxyCODONE HCl Immed Release 5 MG TABLET PO ×3 (09:59→22:58)
[2023-09-15 11:47] VITALS: BP 139/65; PULSE 57; RESP 18; TEMP 36.6; O2SAT 99
[2023-09-15 15:27] VITALS: BP 126/76; PULSE 72; RESP 18; TEMP 36.6; O2SAT 99
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
[2023-09-15] MEDS: 0.9 % Sodium Chloride Flush 3 ML SYRINGE IVFLUSH ×2 (17:38→23:11)
[2023-09-15 20:00] VITALS: BP 115/56; PULSE 60; RESP 16; TEMP 36.5; O2SAT 99
[2023-09-15] MEDS: Acetaminophen 325 MG TABLET 650 MG PO (22:58)
[2023-09-15] MEDS: Melatonin 3 MG TABLET 6 MG PO (22:59)
[2023-09-15 23:55] VITALS: BP 123/63; PULSE 66; RESP 16; TEMP 36.5; O2SAT 99
[2023-09-16 02:50] VITALS: BP 128/60; PULSE 77; RESP 16; TEMP 36.2; O2SAT 98
[2023-09-16] MEDS: oxyCODONE HCl Immed Release 5 MG TABLET PO ×2 (06:14→11:25)
[2023-09-16] MEDS: Acetaminophen 325 MG TABLET 650 MG PO (06:14)
[2023-09-16 07:42] VITALS: BP 107/62; PULSE 62; RESP 16; TEMP 36.1; O2SAT 99
[2023-09-16] MEDS: Docusate Sodium 100 MG CAPSULE PO (09:48)
[2023-09-16] MEDS: 0.9 % Sodium Chloride Flush 3 ML SYRINGE IVFLUSH (09:48)
--- NOTE | 2023-09-16 10:26 | P.PNGS_ITS ---
Subjective Subjective Date of Service: 09/16/23 Interval history: Feels improved. Tolerating solid diet. Reports mild incisional pain and RUQ/right shoulder pain but overall better. OOB and ambulating. Moving her bowels. Would like to go home. Physical Exam 2 Vital Signs: Vital Signs: Last Vital Signs Temp 97.0 F 09/16/23 07:42 Pulse 62 09/16/23 07:42 Resp 16 09/16/23 07:42 BP 107/62 09/16/23 07:42 Pulse Ox 99 09/16/23 07:42 O2 Del Method Room Air 09/16/23 07:42 BMI result Body Mass Index 34.0 Const: General: comfortable, no acute distress and alert O rientation/consciousness: patient oriented x3 Resp: Effort & Inspection: normal respiratory effort GI: Inspection: No distended and Yes incision (steris intact, incisions clean, mild umbilical ecchymosis ) Palpation (GI): Soft to palpation, Tenderness to palpation present (GI) (mild incisional) and no guarding Skin: General skin exam: no rashes or lesions noted and no jaundice Neuro: General: patient oriented x3 and moves all extremities Objective Data Active Medications Acetaminophen (Acetaminophen 325 Mg Tablet) 650 mg PO Q6H PRN PRN Reason: Pain, Mild (Pain Scale 1-3) Last Admin: 09/16/23 06:14 Dose: 650 mg Documented By: SAMARIA Calcium Carbonate (Calcium Carbonate 750 Mg Tab.Chew) 750 mg PO Q4H PRN PRN Reason: Heartburn Docusate Sodium (Docusate Sodium 100 Mg Capsule) 100 mg PO BID [facility] Last Admin: 09/16/23 09:48 Dose: 100 mg Documented By: DHEERAJ Hydromorphone HCl (Hydromorphone Hcl 1 Mg/Ml Syringe) 0.5 mg IVPUSH Q4H PRN; Protocol PRN Reason: Pain, Severe (Pain Scale 7-10) Last Admin: 09/15/23 17:37 Dose: 0.5 mg Documented By: DHEERAJ Magnesium Hydroxide (Milk Of Magnesia 30 Ml Oral.Susp) 30 ml PO DAILY PRN PRN Reason: Constipation Melatonin (Melatonin 3 Mg Tablet) 6 mg PO BEDTIME PRN PRN Reason: Insomnia Last Admin: 09/15/23 22:59 Dose: 6 mg Documented By: MIRNA Morphine Sulfate (Morphine Sulfate 4 Mg/Ml Cartridge) 4 mg IVPUSH Q2H PRN; Protocol PRN Reason: Pain, Severe (Pain Scale 7-10) Ondansetron HCl (Ondansetron Hcl 4 Mg/2 Ml Vial) 4 mg IVPUSH Q8H PRN PRN Reason: Nausea and Vomiting Last Admin: 09/15/23 17:38 Dose: 4 mg Documented By: DHEERAJ Oxycodone HCl (Oxycodone Hcl Immed Release 5 Mg Tablet) 5 mg PO Q4H PRN PRN Reason: Pain, Moderate(Pain Scale 4-6) Last Admin: 09/16/23 06:14 Dose: 5 mg Documented By: ODRISPrashant Promethazine HCl (Promethazine Hcl 25 Mg Tablet) 25 mg PO Q6H PRN PRN Reason: Nausea Last Admin: 09/14/23 17:59 Dose: 25 mg Documented By: TAMMIE Sodium Chloride (0.9 % Sodium Chloride Flush 3 Ml Syringe) 3 ml IVFSH [facility] Last Admin: 09/16/23 09:48 Dose: 3 ml Documented By: DHEERAJ Labs 09/14/23 06:32 09/14/23 06:26 Procedures Date of Service Date of Service: 09/16/23 Progress Note: A&P Assessment and plan (1) S/P laparoscopic cholecystectomy: Status: Acute (2) Post-operative pain: Status: Acute (3) Pneumothorax on right: Status: Acute Plan Feels well, improved and ready for discharge. Tolerating solid diet, comfortable on PO analgesics. Abd benign with clean incisions and stable respiratory reyes. Dc to home today. Educated on continued incentive spirometer use, ambulation. Patient comfortable with plan. F/u in office in 1 week. Time Spent With Patient Time: Total time managing care of this patient today ____ minutes. Quality Stroke Does the patient have a stroke diagnosis?: No VTE Prior VTE?: No VTE Risk Level:: Medical - low VTE Device Contraindication: N/A - Device Ordered VTE Drug Contraindication: Treatment Not Indicated
--- NOTE | 2023-09-16 10:56 | MHC.CM.PN ---
PT WILL DC HOME TODAY WITH NO SERVICES VIA FAMILY TRANSPORT
[2023-09-16 12:00] VITALS: BP 131/62; PULSE 68; RESP 16; TEMP 36.1; O2SAT 100
--- NOTE | 2023-09-16 12:41 | P.DS_ITS ---
DS: Providers Provider Date of Service: 09/16/23 Date of admission: 09/14/23 09:47 Date of discharge: 09/16/23 Primary care physician: Tomasa Physician Attending physician on admission: Jesus Miller Attending physician on discharge: Jesus Miller DS: Diagnosis Discharge Diagnosis (1) S/P laparoscopic cholecystectomy: Status: Acute (2) Post-operative pain: Status: Acute (3) Pneumothorax on right: Status: Acute DS: Summary Hospital Course Hospital Course: HPI AT ADMISSION: Lillie Drew is a 22 year old female with PMH of hypertension who underwent laparoscopic cholecystectomy yesterday for acute cholecystitis. The procedure itself was uncomplicated and she was discharged to home following. She reports severe pain at the umbilical and epigastric incision sites following the procedure. She took the oral narcotic with only partial relief of the pain for an hour. She then developed severe pain and and nausea and multiple episodes of vomiting which further exacerbated the pain. She had no improvement in her symptoms throughout the night which prompted her to seek care in the ED. Work up included CBC, BMP, LFTs which was significant for a leukocytosis of 15.4. Total bilirubin normal. CT scan abd/pelvis showed no abnormal fluid collection in the right upper quadrant, status post cholecy stectomy, small right-sided pneumothorax is partially included in [id number]. She has not been able to keep down any PO intake. She continues to c/o severe pain and is unable to take deep breaths due to pain. She denies overt shortness of breath, cough. She was able to ambulate but reports difficulty due to pain. She denies hematemesis, diarrhea, fevers, chills, yellowing of the skin, back pain. HOSPITAL COURSE: She was admitted to the surgical service for further pain control, IVF, antiemetics. She was found to have an incidental right pneumothorax on CT abd/pelvis. CXR was obtained which confirmed a trace right pneumo. She was hemodynamically stable and has no significant respiratory symptoms and therefore this was monitored and incentive spirometer and ambulation encouraged. She improved throughout her hospital stay and her pain control improved. Her nausea/vomiting subsided and she was tolerating a solid diet. On HD #2, she had good pain control on oral analgesics and was tolerating a solid diet. She was ambulating without difficulty. She was hemodynamically stable with no respiratory symptoms and her abdomen was benign with appropriate post op tenderness and clean incisions. She was discharged to home on 09/16/23 in stable condition. She was encouraged to continue her incentive spirometer at home and return if she developed shortness of breath. She is to follow up in the office in 1 week. Status at Discharge Functional status at discharge: independent ambulation Overall status at discharge: patient is progressing back to baseline Time Attestation Discharge Coordination Time (in mins): 35 Quality: Safe Use of Opioids Does Pt have an Active Cancer Diagnosis on the Problem List?: No Quality: Stroke Does the patient have a stroke diagnosis?: No Physical Exam Vital Signs: Vital Signs: Last Vital Signs Temp 96.9 F 09/16/23 12:00 Pulse 68 09/16/23 12:00 Resp 16 09/16/23 12:00 BP 131/62 09/16/23 12:00 Pulse Ox 100 09/16/23 12:00 O2 Del Method Room Air 09/16/23 12:00 BMI result Body Mass Index 34.0 Const: General: comfortable, no acute distress and alert Resp: Effort & Inspection: normal respiratory effort, able to speak in complete sentences and no respiratory distress GI: Inspection: No distended and Yes incision (clean, mild umbilical ecchymosi s ) Palpation (GI): Soft to palpation and Tenderness to palpation present (GI) (mild incisional) Skin: General skin exam: no jaundice Discharge Plan Discharge Anticipated Discharge Date/Time: 09/15/23 12:26 Patient Disposition: Home, Self-Care Discharge Diagnosis: post operative pain s/p laparoscopic cholecystectomy Referrals: Jesus Miller MD [Physician] - 1 Week Physician,Unknown J [Physician] - 1 Week Discharge Medications: New ondansetron 8 mg tablet,disintegrating 8 mg PO Q8H PRN (Reason: nausea and vomiting) Qty: 20 0RF docusate sodium [Colace] 100 mg capsule 100 mg PO BID PRN (Reason: constipation) Qty: 30 0RF Continued lisinopril 2.5 mg Tablet 2.5 mg PO DAILY Discharge Orders: Discharge Order (Routine); Ordered 09/16/23 Ordered By: Victoria Valencia Diet: Low fat, low cholesterol Activity on Discharge: No heavy lifting Stand Alone Forms: Patient Portal Discharge page Print Language: Yakut Activity Restrictions/Additional Instructions: Apply an ice pack for short intervals (20 minutes on, followed by at least 20 minutes off) for the first 2 days. Do not apply heat. Do not use creams, lotions, or topical antibiotics. These can cause infection or allergic reaction. Ok to shower 48 hours after your surgery. You have steri strips (small white cloth strips) covering your incision- these will fall off ~1 week. Follow up in office with Dr. Miller in 1 week. ([phone]) No heavy lifting (>10lbs) or strenuous activity! Call Your Doctor If: -Your temperature exceeds 101.5? F -You experience excessive pain or swelling -You have an unexpected reaction to medication -You have excessive bleeding -You experience continued vomiting/nausea -Your incision begins to separate -Your incision shows signs of infection such as increased redness, swelling, excessive pain, drainage (light blood or clear fluid is normal) or heat Care Plan Goals: Return to baseline health and resume normal activities following recovery period. Health Concerns: s/p laparoscopic cholecystectomy Plan of Treatment: post op pain control, antiemetics f/u in office in 1 week Assessment: Improved Discharge Date/Time: 09/16/23 13:58
== END 2023-09-16 13:58 | disposition home or self-care (01) ==
LOC: HO.ED 10:00 → HO.EDOVER 10:04 → HO.S3 15:33
PROVIDERS: Internal Medicine; Admitting Provider Physician Assistant Surgical; Emergency Provider Emergency Medicine Emergency Medical Services; Visit Provider Physician Assistant Surgical
DX: G89.18 Other acute postprocedural pain (principal); Z90.49 Acquired absence of other specified parts of digestive tract; J93.9 Pneumothorax, unspecified; R11.10 Vomiting, unspecified; R11.2 Nausea with vomiting, unspecified; R10.13 Epigastric pain; R10.11 Right upper quadrant pain
CPT/HCPCS: 36415; 71045; 74176; 80053; 83690; 85025; 96361; 96365; 96366; 96375; 96376; 99221; 99285; J0131; J1170; J2060; J2270; J2405; J7120

== ENCOUNTER → 2023-09-14 09:47 | Outpatient (BNV) | payer SELFPAY | PROVIDERS: Admitting Provider Physician Assistant Surgical; Emergency Provider Emergency Medicine Emergency Medical Services; Visit Provider Physician Assistant Surgical | DX: Z90.49 Acquired absence of other specified parts of digestive tract (principal); G89.18 Other acute postprocedural pain; J93.9 Pneumothorax, unspecified | CPT/HCPCS: 99024 ==

== ENCOUNTER 2024-06-24 14:41 | Emergency (ER) | payer MEDICAID, SELFPAY ==
[2024-06-24 14:53] VITALS: BP 129/79; PULSE 65; RESP 20; TEMP 37; O2SAT 100
--- NOTE | 2024-06-24 14:57 | ED_ITS ---
HPI - Female Genitourinary General Chief complaint: General Medical Stated complaint: vaginal bleeding Time Seen by Provider: 06/24/24 17:57 Source: patient and RN notes reviewed Limitations: no limitations History of Present Illness HPI Narrative: 23-year-old female who has a history of asthma, presents for evaluation of vaginal irritation and bleeding. Patient states approximately 1 week ago she had some spotting with wiping and feels as though there was from around her clitoris. Patient states that she began to have irritation with wiping yesterday and today and therefore presents to the emergency department. Of note, the patient states she has her menses that started today. She also reports abnormal color of the blood being ?black?. She denies any history of this. Her last menses was normal. She is not on any control. Patient states she has not been sexually active since last year. She denies any dysuria or hematuria. No fevers chills nausea or vomiting. No abdominal pain. Related Data Home Medications ?Medication ?Instructions ?Recorded ?Confirmed lisinopril 2.5 mg tablet 2.5 mg PO DAILY 09/14/23 09/14/23 Previous Rx's ?Medication ?Instructions ?Recorded docusate sodium 100 mg capsule 100 mg PO BID PRN constipation #30 09/16/23 (Colace) caps ondansetron 8 mg disintegrating 8 mg PO Q8H PRN nausea and 09/16/23 tablet vomiting #20 tabs Allergies Allergy/AdvReac Type Severity Reaction Status Date / Time No Known Allergies Allergy Verified 06/24/24 14:54 [No Known Allergies*] Review of Systems 2 Constitutional: Constitutional: Denies chills and Denies fever(s) Cardiovascular: Cardiovascular: Denies chest pain, Denies dyspnea, Denies dyspnea on exertion and Denies orthopnea Respiratory: Respiratory: Denies cough, Denies dyspnea and Denies dyspnea on exertion Gastrointestinal: Gastrointestinal: Denies abdominal pain, Denies melena, Denies hematochezia, Denies diarrhea, Denies nausea and Denies vomiting Genitourinary: Genitourinary: Denies dysuria and Denies urinary urgency Musculoskeletal: Musculoskeletal: Denies back pain, Denies muscle weakness and Denies numbness Integumentary/Breasts: Skin/Breast: Denies rash Neurologic: Denies focal weakness and Denies numbness Psychiatric: Psychiatric: Denies depression PMFSH Past Medical History Medical History Ovarian cyst Arrhythmia Surgical History (Updated 09/24/23 @ 00:01 by Juice Hong) Hx laparoscopic cholecystectomy (~09/13/23) Social History Social History Patient Tobacco Use Status: Never used Tobacco Substance Use Type: Marijuana Advance Directives: No Advance Directives Information Provided: No service: No Physical Exam 2 Vital Signs: Vital Signs: Last Vital Signs Temp 98.4 F 06/24/24 20:16 Pulse 70 06/24/24 20:16 Resp 16 06/24/24 20:16 BP 107/42 L 06/24/24 20:16 Pulse Ox 99 06/24/24 20:16 O2 Del Method Room Air 06/24/24 20:16 BMI result Body Mass Index 30.0 Const: General: cooperative, alert and awake Resp: Auscultation: clear to auscultation bilaterally Cardio: Rate: regular rate Rhythm: regular rhythm GI: Other: Abdomen is soft and nontender throughout. No CVAT. No peritoneal signs. : Other: exam with female RN Dianne present. Normal-appearing external female anatomy without any lesions or rashes. Specific attention to the labia and clitoris and cholesterol arzola region. There was no evidence of abrasions, excoriations, vesicles or any evidence of bleeding. Vaginal exam deferred given the patient is actively on her menses. Course Course Course Narrative: This is an RME: Additional HPI, ROS, PE not included below will be deferred to primary provider. RME assessment and note performed by: Susie Mckeon PA-C This is a 4-[id number]-female who presents to the ER with complaints of ? Abnormal vaginal bleeding. Patient believes that she was bleeding through the clitoral region. She states that this has been happening for the last week, started her menses today. No chance of per patient, history of abnormal bleeding in the past, has never been worked up for. She was sexually active. She denies any open wounds, sores for previous piercings in this region. Unable to visualize region in triage secondary to limited privacy. Further ER evaluation needed. Plan: Labs, UA, further ER evaluation needed. Reevaluation(s) Reevaluation #1: Reviewed all labs,, UA no acute process. Patient we will follow up with OBGYN referral. She expresses understanding of all discharge instructions and has no further questions at this time. No evidence of infection to warrant antibiotics. No other additional testing at this time. Medical Decision Making Medical Decision Making MDM Narrative: 23-year-old female with vaginal irritation and bleeding. Lab Data 06/24/24 15:29 06/24/24 15:29 Labs: Lab Results 06/24/24 Range/Units 15:29 WBC 6.1 (4.8-10.8) X10*3/uL RBC 3.84 L (4.20-5.50) X10*6/uL Hgb 12.4 (12.0-16.0) g/dl Hct 36.5 L (37.0-47.0) % MCV 95.1 (80.0-98.0) fL MCH 32.3 (27.0-33.0) pg MCHC 34.0 (31.0-35.0) g/dl RDW 12.7 (11.0-16.0) % Plt Count 197 (160-400) X10*3/uL MPV 10.2 (9.4-12.3) fL Immature Gran % (Auto) 0.2 (0.0-0.4) % Neut % (Auto) 55.4 (45-73) % Lymph % (Auto) 32.2 (20-40) % [place] % (Auto) 8.4 (2-11) % Eos % (Auto) 3.3 (0-4) % Baso % (Auto) 0.5 (0-2) % Lymph # (Auto) 2.0 (1.2-4.9) X10*3/uL [place] # (Auto) 0.5 (0.1-1.2) X10*3/uL Eos # (Auto) 0.2 (0.0-0.4) X10*3/uL Baso # (Auto) 0.0 (0.0-0.2) X10*3/uL Abs Immat Gran (auto) 0.01 (0.00-0.03) X10*3/uL Absolute Neuts (auto) 3.4 (2.0-8.3) x10*3/uL Absolute Nucleated RBC 0.000 (0.0-0.012) X10*3/uL Nucleated RBC % (auto) 0.0 (0.0-0.2) /100WBC Sodium 141 (135-145) mmol/L Potassium 3.6 (3.3-5.1) mmol/L Chloride 109 H (96-108) mmol/L Carbon Dioxide 26 (22-29) mmol/L Anion Gap 10 L (12-20) BUN 14 (9-16) mg/dL Creatinine 0.71 (0.5-1.4) mg/dL Estim Creat Clear Calc 138.4 Estimated GFR > 60 Random Glucose 92 (60-115) mg/dL Calcium 9.4 (8.4-10.2) mg/dL Magnesium 1.9 (1.6-2.6) mg/dL Total Bilirubin 0.5 (0.0-1.0) mg/dL Direct Bilirubin 0.2 (0.0-0.5) mg/dL AST 18 (5-31) U/L ALT 13 (0-31) U/L Alkaline Phosphatase 52 (39-117) U/L Total Protein 6.4 L (6.5-8.0) g/dL Albumin 4.0 (3.5-5.0) g/dL Beta HCG, Quant < 2 mIU/mL Urine Color Yellow Urine Appearance Clear Urine pH 7.0 (5.0-9.0) Ur Specific [place] 1.015 (1.005-1.025) Urine Protein Negative (Neg-Trace) mg/dL Urine Glucose (UA) Negative (Negative) mg/dL Urine Ketones Negative (Negative) mg/dL Urine Blood Moderate (2+) H (Negative) Urine Nitrite Negative (Negative) Ur Leukocyte Esterase Negative (Negative) Urine RBC >20 H (0-2) /HPF Urine WBC 0-5 (0-5) /HPF Ur Squamous Epith Cells 0-2 (0-2) /HPF Urine Bacteria None Seen (None Seen) Hyaline Casts 0-2 (0-2) /LPF Discharge Plan Discharge Clinical Impression: Menses painful, Clitoral irritation Patient Disposition: Home, Self-Care Instructions: Dysmenorrhea (ED) Additional Instructions: Keep the area clean and dry, avoid excessive moisture. You may try warm soaks in a bath. Be sure to dry off thoroughly. Watch for any redness, swelling, discharge or any other concern return immediately to the emergency department. Follow up with OBGYN referral, Dr. Angelo. Call to schedule follow up appointment. Follow-up with your primary care provider. Call this week to schedule a follow- up appointment. Return to the emergency department if you have any worsening of symptoms, or any concerns. Get well soon! Prescriptions: No Action lisinopril 2.5 mg Tablet 2.5 mg PO DAILY ondansetron 8 mg tablet,disintegrating 8 mg PO Q8H PRN (Reason: nausea and vomiting) Qty: 20 0RF docusate sodium [Colace] 100 mg capsule 100 mg PO BID PRN (Reason: constipation) Qty: 30 0RF Interventions: ED Discharge Assessment Last Done: 06/24/24 20:16 Discharge Date/Time: 06/24/24 20:16 Print Language: Icelandic
[2024-06-24 15:46] LABS: MANUAL DIFF FLAG NO
[2024-06-24 15:52] LABS: Basophils Percent Auto 0.5 % (0-2); Eosinophils Absolute Auto 0.2 X10*3/uL (0.0-0.4); Eosinophils Percent Auto 3.3 % (0-4); Hematocrit 36.5 % (37.0-47.0); Hemoglobin 12.4 g/dl (12.0-16.0); Imm Gran Abs Auto 0.01 X10*3/uL (0.00-0.03); Imm Gran Pct Auto 0.2 % (0.0-0.4); Lymphocytes Percent Auto 32.2 % (20-40); Mean Corpuscular Hemoglobin 32.3 pg (27.0-33.0); Mean Corpuscular Volume 95.1 fL (80.0-98.0); Mean Platelet Volume 10.2 fL (9.4-12.3); Monocytes Absolute Auto 0.5 X10*3/uL (0.1-1.2); Monocytes Percent Auto 8.4 % (2-11); Neutrophils Absolute Auto 3.4 x10*3/uL (2.0-8.3); Neutrophils Percent Auto 55.4 % (45-73); Platelet Count 197 X10*3/uL (160-400); Red Blood Count 3.84 X10*6/uL (4.20-5.50); Red Cell Distribution Width 12.7 % (11.0-16.0); White Blood Count 6.1 X10*3/uL (4.8-10.8)
[2024-06-24 15:53] LABS: Appearance Urine Clear; Color Urine Yellow; Glucose Urine UA Negative (Negative); Leukocyte Esterase Urine Negative (Negative); Nitrite Urine Negative (Negative); Specific Gravity - Urine 1.015 (1.005-1.025); UMIC TRIGGER UACC YES; Urine Blood Moderate (2+) (Negative); Urine Ketones Negative (Negative); Urine Protein Negative (Neg-Trace)
[2024-06-24 15:59] LABS: Bacteria Urine None Seen (None Seen); Hyaline Casts Urine 0-2 /LPF (0-2); RBC Urine >20 /HPF (0-2); Squamous Epithelial Cell Urine 0-2 /HPF (0-2); WBC Urine 0-5 /HPF (0-5)
[2024-06-24 16:20] LABS: Alanine Aminotransferase 13 U/L (0-31); Anion Gap 10 (12-20); Aspartate Amino Transferase 18 U/L (5-31); Bilirubin Direct 0.2 mg/dL (0.0-0.5); Bilirubin Total 0.5 mg/dL (0.0-1.0); Blood Urea Nitrogen 14 mg/dL (9-16); Calcium 9.4 mg/dL (8.4-10.2); Carbon Dioxide 26 mmol/L (22-29); Chloride 109 mmol/L (96-108); Creatinine Clr Calc Pharmacy 138.4; Estimated Glomerular Filt Rate > 60; Glucose Random 92 mg/dL (60-115); HCG Quantitative < 2 mIU/mL; Magnesium 1.9 mg/dL (1.6-2.6); Potassium 3.6 mmol/L (3.3-5.1); Sodium 141 mmol/L (135-145); Total Protein 6.4 g/dL (6.5-8.0)
[2024-06-24 16:43] LABS: Alkaline Phosphatase 52 U/L (39-117)
[2024-06-24 17:49] VITALS: BP 107/42; PULSE 70; RESP 16; TEMP 36.9; O2SAT 99
[2024-06-24 20:16] VITALS: BP 107/42; PULSE 70; RESP 16; TEMP 36.9; O2SAT 99
== END 2024-06-24 20:16 | disposition home or self-care (01) ==
PROVIDERS: Physician Assistant Medical; Emergency Provider Emergency Medicine
DX: N94.4 Primary dysmenorrhea (principal); N89.8 Other specified noninflammatory disorders of vagina; Z79.899 Other long term (current) drug therapy
CPT/HCPCS: 36415; 80048; 80076; 81001; 83735; 84702; 85025; 99283

== ENCOUNTER 2024-08-13 20:37 | Emergency (ER) | payer MEDICAID, SELFPAY ==
--- NOTE | ~2024-08-13 | XR_ITS ---
CLINICAL HISTORY: SOB, CP 2 view chest x-ray Comparison: None provided Findings: No consolidation, pneumothorax, or pleural effusion. Normal size heart. No acute fracture. Likely surgical clips in the imaged abdomen. IMPRESSION: No consolidation. This document has been electronically signed by: Isidro Le MD on 08/13/2024 21:32:59
--- NOTE | 2024-08-13 20:42 | ED.SOB ---
HPI - SOB/Dyspnea General Chief Complaint: Upper Respiratory Symptoms Stated Complaint: SOB possibly exposed to covid Related Data Home Medications ?Medication ?Instructions ?Recorded ?Confirmed lisinopril 2.5 mg tablet 2.5 mg PO DAILY 09/14/23 09/14/23 Previous Rx's ?Medication ?Instructions ?Recorded docusate sodium 100 mg capsule 100 mg PO BID PRN constipation #30 09/16/23 (Colace) caps ondansetron 8 mg disintegrating 8 mg PO Q8H PRN nausea and 09/16/23 tablet vomiting #20 tabs Allergies Allergy/AdvReac Type Severity Reaction Status Date / Time No Known Allergies (No Known Allergy Verified 08/13/24 20:44 Allergies*) [facility] Past Medical History Medical History Ovarian cyst Arrhythmia Surgical History (Updated 09/24/23 @ 00:01 by Juice Hong) Hx laparoscopic cholecystectomy (~09/13/23) Social History Social History Patient Tobacco Use Status: Never used Tobacco Substance Use Type: Marijuana Advance Directives: No Advance Directives Information Provided: No service: No Physical Exam Vital Signs: Vital Signs: Last Vital Signs Temp 98.4 F 08/13/24 20:43 Pulse 81 08/13/24 20:43 Resp 18 08/13/24 20:43 BP 109/60 08/13/24 20:43 Pulse Ox 99 08/13/24 20:43 O2 Del Method Room Air 08/13/24 20:43 BMI result Body Mass Index 29.7 Course Course Course Narrative: This is an RME: Additional HPI, ROS, PE not included below will be deferred to primary provider. RME assessment and note performed by: Susie Mckeon PA-C This is a [id number]-female, with hx of asthma, who presents to the ER with complaints of shortness of breath, dizziness, and cough x 3 days . Reporting fatigue and body aches. Reports that she has had some CP. No headache, abdominal pain or diarrhea. Plan: Labs, EKG, CXR, Viral swabs Reevaluation(s) Reevaluation #1: Patient left without completing treatment. Medical Decision Making Lab Data 08/13/24 21:38 08/13/24 21:38 Labs: Lab Results 08/13/24 Range/Units 21:38 WBC 8.7 (4.8-10.8) X10*3/uL RBC 3.90 L (4.20-5.50) X10*6/uL Hgb 12.7 (12.0-16.0) g/dl Hct 36.1 L (37.0-47.0) % MCV 92.6 (80.0-98.0) fL MCH 32.6 (27.0-33.0) pg MCHC 35.2 H (31.0-35.0) g/dl RDW 12.4 (11.0-16.0) % Plt Count 201 (160-400) X10*3/uL MPV 10.2 (9.4-12.3) fL Immature Gran % (Auto) 0.2 (0.0-0.4) % Neut % (Auto) 66.6 (45-73) % Lymph % (Auto) 20.7 (20-40) % [place] % (Auto) 7.3 (2-11) % Eos % (Auto) 5.0 H (0-4) % Baso % (Auto) 0.2 (0-2) % Lymph # (Auto) 1.8 (1.2-4.9) X10*3/uL [place] # (Auto) 0.6 (0.1-1.2) X10*3/uL Eos # (Auto) 0.4 (0.0-0.4) X10*3/uL Baso # (Auto) 0.0 (0.0-0.2) X10*3/uL Abs Immat Gran (auto) 0.02 (0.00-0.03) X10*3/uL Absolute Neuts (auto) 5.8 (2.0-8.3) x10*3/uL Absolute Nucleated RBC 0.000 (0.0-0.012) X10*3/uL Nucleated RBC % (auto) 0.0 (0.0-0.2) /100WBC Sodium 138 (135-145) mmol/L Potassium 4.0 (3.3-5.1) mmol/L Chloride 110 H (96-108) mmol/L Carbon Dioxide 21 L (22-29) mmol/L Anion Gap 11 L (12-20) BUN 13 (9-16) mg/dL Creatinine 0.71 (0.5-1.4) mg/dL Estim Creat Clear Calc 137.7 Estimated GFR > 60 Random Glucose 92 (60-115) mg/dL Calcium 8.8 D (8.4-10.2) mg/dL Total Bilirubin 0.3 (0.0-1.0) mg/dL Direct Bilirubin 0.1 (0.0-0.5) mg/dL AST 19 (5-31) U/L ALT 13 (0-31) U/L Alkaline Phosphatase 56 (39-117) U/L Total Protein 6.5 (6.5-8.0) g/dL Albumin 4.2 (3.5-5.0) g/dL Beta HCG, Quant < 2 mIU/mL Influenza Type A (PCR) NEGATIVE (Negative) Influenza Type B (PCR) NEGATIVE (Negative) RSV RNA Qual (PCR) NEGATIVE (Negative) SARS-CoV-2 RNA (RT-PCR) NEGATIVE (Negative) Discharge Plan Discharge Clinical Impression: Cough Patient Disposition: Left W/O Completing Treatment Prescriptions: No Action lisinopril 2.5 mg Tablet 2.5 mg PO DAILY ondansetron 8 mg tablet,disintegrating 8 mg PO Q8H PRN (Reason: nausea and vomiting) Qty: 20 0RF docusate sodium [Colace] 100 mg capsule 100 mg PO BID PRN (Reason: constipation) Qty: 30 0RF Discharge Date/Time: 08/13/24 23:53
[2024-08-13 20:43] VITALS: BP 109/60; PULSE 81; RESP 18; TEMP 36.9; O2SAT 99; BMI 29.7
--- NOTE | 2024-08-13 20:44 | ECG_ITS ---
Test Reason : sob Blood Pressure : */* mmHG Vent. Rate : 70 BPM Atrial Rate : 70 BPM P-R Int : 126 ms QRS Dur : 80 ms QT Int : 366 ms P-R-T Axes : 38 38 22 degrees QTcB Int : 395 ms Normal sinus rhythm Normal ECG When compared with ECG of 29-Feb-2016 13:55, No significant change was found Referred By: Susie Mckeon Electronically Signed By: ANDRES REYNOSO
[2024-08-13 21:42] LABS: MANUAL DIFF FLAG NO
[2024-08-13 21:43] LABS: Basophils Percent Auto 0.2 % (0-2); Eosinophils Absolute Auto 0.4 X10*3/uL (0.0-0.4); Hematocrit 36.1 % (37.0-47.0); Hemoglobin 12.7 g/dl (12.0-16.0); Imm Gran Abs Auto 0.02 X10*3/uL (0.00-0.03); Imm Gran Pct Auto 0.2 % (0.0-0.4); Lymphocytes Absolute Auto 1.8 X10*3/uL (1.2-4.9); Lymphocytes Percent Auto 20.7 % (20-40); Mean Corpuscular HGB Conc 35.2 g/dl (31.0-35.0); Mean Corpuscular Hemoglobin 32.6 pg (27.0-33.0); Mean Corpuscular Volume 92.6 fL (80.0-98.0); Mean Platelet Volume 10.2 fL (9.4-12.3); Monocytes Absolute Auto 0.6 X10*3/uL (0.1-1.2); Monocytes Percent Auto 7.3 % (2-11); Neutrophils Absolute Auto 5.8 x10*3/uL (2.0-8.3); Neutrophils Percent Auto 66.6 % (45-73); Platelet Count 201 X10*3/uL (160-400); Red Cell Distribution Width 12.4 % (11.0-16.0); White Blood Count 8.7 X10*3/uL (4.8-10.8)
[2024-08-13 22:13] LABS: Alanine Aminotransferase 13 U/L (0-31); Albumin Level 4.2 g/dL (3.5-5.0); Alkaline Phosphatase 56 U/L (39-117); Anion Gap 11 (12-20); Aspartate Amino Transferase 19 U/L (5-31); Bilirubin Direct 0.1 mg/dL (0.0-0.5); Bilirubin Total 0.3 mg/dL (0.0-1.0); Blood Urea Nitrogen 13 mg/dL (9-16); Calcium 8.8 mg/dL (8.4-10.2); Carbon Dioxide 21 mmol/L (22-29); Chloride 110 mmol/L (96-108); Creatinine Clr Calc Pharmacy 137.7; Estimated Glomerular Filt Rate > 60; Glucose Random 92 mg/dL (60-115); Sodium 138 mmol/L (135-145); Total Protein 6.5 g/dL (6.5-8.0)
[2024-08-13 22:20] LABS: Influenza A PCR NEGATIVE (Negative); Influenza B PCR NEGATIVE (Negative); Resp Syncy Virus RNA Qual PCR NEGATIVE (Negative); SARS COV2 PCR INHOUSE NEGATIVE (Negative)
[2024-08-13 22:37] LABS: HCG Quantitative < 2 mIU/mL
== END 2024-08-13 23:53 | disposition left against medical advice (07) ==
PROVIDERS: Physician Assistant Medical; Emergency Provider Emergency Medicine
DX: R06.02 Shortness of breath (principal); R07.89 Other chest pain; R05.9 Cough, unspecified; Z79.899 Other long term (current) drug therapy; Z03.818 Encounter for observation for suspected exposure to other biological agents ruled out
CPT/HCPCS: 0241U; 36415; 71046; 80048; 80076; 84702; 85025; 93005; 99283

== ENCOUNTER → 2024-08-13 20:44 | Outpatient (BNV) | payer MEDICAID, SELFPAY | PROVIDERS: Emergency Provider Emergency Medicine; Visit Provider Internal Medicine | DX: R06.02 Shortness of breath (principal) | CPT/HCPCS: 93010 ==

== ENCOUNTER → 2024-08-13 20:44 | Outpatient (BNV) | payer MEDICAID, SELFPAY | PROVIDERS: Visit Provider Radiology Neuroradiology | DX: R06.02 Shortness of breath (principal) | CPT/HCPCS: 71046 ==

== ENCOUNTER 2024-12-22 11:52 | Emergency (ER) | payer OTHER, SELFPAY ==
--- NOTE | ~2024-12-22 | XR_ITS ---
CLINICAL HISTORY: cough sob, Chest Radiographs, 2 views Comparison: CR - XR CHEST 2V - 08/13/24 21:09 EDT CR/FL/SR - XR CHEST 2 VIEWS - 09/15/23 08:18 EDT CR/SR - XR CHEST 2 VIEWS - 09/14/23 10:24 EDT Findings: No cardiomegaly. Normal mediastinal contours. No pneumothorax. No opacity. No pleural effusion. No acute findings in the upper abdomen. No acute fracture. Impression: No acute findings. This document has been electronically signed by: Concepción Sung MD on 12/22/2024 13:09:40
[2024-12-22 11:57] VITALS: BP 125/58; PULSE 81; RESP 20; TEMP 36.4; O2SAT 99; BMI 32.7
--- NOTE | 2024-12-22 11:58 | ED_ITS ---
HPI - Asthma General Chief Complaint: Upper Respiratory Symptoms Stated Complaint: Asthma Time Seen by Provider: 12/22/24 12:14 Related Data Home Medications ?Medication ?Instructions ?Recorded ?Confirmed lisinopril 2.5 mg tablet 2.5 mg PO DAILY 09/14/23 Previous Rx's ?Medication ?Instructions ?Recorded docusate sodium 100 mg capsule 100 mg PO BID PRN const ipation #30 09/16/23 (Colace) caps ondansetron 8 mg disintegrating 8 mg PO Q8H PRN nausea and 09/16/23 tablet vomiting #20 tabs albuterol sulfate 90 mcg/actuation 2 inh inhalation Q6 H PRN shortness 12/22/24 breath activated powder inhaler of breath #1 ea prednisone 20 mg tablet 40 mg (2 x 20 mg) PO DAILY # 10 tabs 12/22/24 Allergies Allergy/AdvReac Type Severity Reaction Status Date / Time No Known Allergies (No Known Allergy Verified 12/22/24 12:00 Allergies*) [facility] Past Medical History Medical History Ovarian cyst Arrhythmia Surgical History Hx laparoscopic cholecystectomy (~09/13/23) Social History Social History Patient Tobacco Use Status: Never used Tobacco Smoked in Last 30 Days: Yes Use of substances other than those prescribed or required for medical reasons: No Substance Use Type: Marijuana Advance Directives: No Advance Directives Information Provided: Yes Do you have a plan to hurt others: No Plan Patient : No service: No Physical Exam Vital Signs: Vital Signs: Last Vital Signs Temp 98.1 F 12/22/24 14:10 Pulse 87 12/22/24 14:10 Resp 20 12/22/24 14:10 BP 136/63 12/22/24 14:10 Pulse Ox 98 12/22/24 14:10 O2 Del Method Room Air 12/22/24 14:10 BMI result Body Mass Index 32.7 Course Course Course Narrative: This is a Rapid Medical Exam performed in triage by Svetlana Polanco PA-C. Full HPI, ROS and PE to be performed by primary ED provider. 24 yo F w/PMHx asthma presenting to the ED c/o dry cough, nasal congestion, SOB, myalgias x 2 days. denies having inhalers at home PE: lungs CTA, dry cough appreciated Plan: CXR, viral testing Medications Administered Discontinued Medications Generic Name Dose Route Start Last Admin Trade Name Freq PRN Reason Stop Dose Admin Albuterol Sulfate 2.5 mg/ 5 mg 12/22/24 12:33 12/22/24 12:37 Albuterol Sulfate 2.5 mg INHALE 12/22/24 12:34 5 mg ONCE ONE Administration Prednisone 60 mg 12/22/24 12:21 12/22/24 12:33 Prednisone 20 Mg Tablet PO 12/22/24 12:22 60 mg ONCE ONE Administration Medical Decision Making Lab Data Labs: Lab Results 12/22/24 12/22/24 Range/Units 12:09 14:12 Urine Test NEGATIVE (NEGATIVE) COVID-19 (ESVIN) Negative (Negative) COVID-19 Clin Com See Note Influenza Type A (NATAN) Negative (Negative) Influenza Type B (NATAN) Negative (Negative) Influenza A & B Note See Note Discharge Plan Discharge Clinical Impression: Asthma Patient Disposition: Home, Self-Care Instructions: Asthma (DC) Prescriptions: New prednisone 20 mg tablet 40 mg PO DAILY Qty: 10 0RF albuterol sulfate 90 mcg/actuation aerosol powdr breath activated 2 inh inhalation Q6H PRN (Reason: shortness of breath) Qty: 1 0RF No Action lisinopril 2.5 mg Tablet 2.5 mg PO DAILY ondansetron 8 mg tablet,disintegrating 8 mg PO Q8H PRN (Reason: nausea and vomiting) Qty: 20 0RF docusate sodium [Colace] 100 mg capsule 100 mg PO BID PRN (Reason: constipation) Qty: 30 0RF Referrals: [facility] [Physician, Medical] - 12/25/24 Stand Alone Forms: Work/School Release Print Language: Congolese
[2024-12-22 12:17] VITALS: BP 125/58; PULSE 81; RESP 20; TEMP 36.4; O2SAT 99
[2024-12-22 12:23] VITALS: PULSE 82; O2SAT 97
--- NOTE | 2024-12-22 12:26 | ED.URI ---
HPI - URI/Sore Throat General Chief Complaint: Upper Respiratory Symptoms Stated Complaint: Asthma Time Seen by Provider: 12/22/24 12:14 History of Present Illness HPI Narrative: Patient is a 24-year-old female with a history of asthma. Have not been hospitalized in the past. Complaining of shortness of breath congestion coughing upper respiratory symptoms wheezing. Patient from home. Patient never been intubated in the past. Only time being admitted was a child. Related Data Home Medications ?Medication ?Instructions ?Recorded ?Confirmed lisinopril 2.5 mg tablet 2.5 mg PO DAILY 09/14/23 09/14/23 Previous Rx's ?Medication ?Instructions ?Recorded docusate sodium 100 mg capsule 100 mg PO BID PRN constipation #30 09/16/23 (Colace) caps ondansetron 8 mg disintegrating 8 mg PO Q8H PRN nausea and 09/16/23 tablet vomiting #20 tabs albuterol sulfate 90 mcg/actuation 2 inh inhalation Q6H PRN shortness 12/22/24 breath activated powder inhaler of breath #1 ea prednisone 20 mg tablet 40 mg (2 x 20 mg) PO DAILY #10 tabs 12/22/24 Allergies Allergy/AdvReac Type Severity Reaction Status Date / Time No Known Allergies (No Known Allergy Verified 12/22/24 12:00 Allergies*) Review of Systems Review of Systems: Positive coughing congestion upper respiratory symptoms Yes all other systems are reviewed and are negative COUNT INCLUDES THE [facility] Past Medical History Attestation statement: The following information was validated with the patient. Medical History Ovarian cyst Arrhythmia Surgical History Hx laparoscopic cholecystectomy (~09/13/23) Social History Social History Patient Tobacco Use Status: Never used Tobacco Smoked in Last 30 Days: Yes Use of substances other than those prescribed or required for medical reasons: No Substance Use Type: Marijuana Advance Directives: No Advance Directives Information Provided: Yes Do you have a plan to hurt others: No Plan Patient : No service: No Physical Exam Exam: Exam: Appearance: Alert. Oriented X3. No acute distress. Eyes: Pupils equal, round and reactive to light. ENT: Pharynx normal. Neck: Normal inspection. Neck supple. No lymph nodes noted. No crepitus CVS: Normal heart rate and rhythm. Pulses normal. Normal S1 and S2 Respiratory: Positive wheezing bilaterally Abdomen: Soft and nontender. No rigidity. No distention. good BS x4 Skin: Skin warm and dry. Normal skin color. Normal skin turgor. Extremities: No lower extremity edema. Neurovascular intact to all extremities. No Lacerations. No Rash Neuro: Oriented X 3. No motor deficit. No sensory deficit. Moving all extermities. No slurred speech Vital Signs: Vital Signs: Last Vital Signs Temp 98.1 F 12/22/24 14:10 Pulse 87 12/22/24 14:10 Resp 20 12/22/24 14:10 BP 136/63 12/22/24 14:10 Pulse Ox 98 12/22/24 14:10 O2 Del Method Room Air 12/22/24 14:10 BMI result Body Mass Index 32.7 Medications Administered Discontinued Medications Generic Name Dose Route Start Last Admin Trade Name Adarshq PRN Reason Stop Dose Admin Albuterol Sulfate 2.5 mg/ 5 mg 12/22/24 12:33 12/22/24 12:37 Albuterol Sulfate 2.5 mg INHALE 12/22/24 12:34 5 mg ONCE ONE Administration Prednisone 60 mg 12/22/24 12:21 12/22/24 12:33 Prednisone 20 Mg Tablet PO 12/22/24 12:22 60 mg ONCE ONE Administration Medical Decision Making Medical Decision Making [facility] Narrative: Positive mild wheezing patient was given steroid neb treatment. My interpretation patient's chest x-ray is grossly negative. Symptomatically feels improved. Lungs are now clear after about 2 hours. Will continue patient on steroid and have patient follow-up on an outpatient basis. In stable condition. Differential Diagnosis Differential Diagnoses: The differential diagnosis associated with the presentation includes Asthma exacerbation, pneumonia Admission/Observation Consideration of admission/observation: Escalation of care including admission/observation considered Symptoms improved no need to admit Lab Data [facility] Lab Attestation statement: I reviewed the patient's lab results. Labs: Lab Results 12/22/24 12/22/24 Range/Units 12:09 14:12 Urine Test NEGATIVE (NEGATIVE) COVID-19 (ESVIN) Negative (Negative) COVID-19 Clin Com See Note Influenza Type A (NATAN) Negative (Negative) Influenza Type B (NATAN) Negative (Negative) Influenza A & B Note See Note Independent Interpretation I performed an independent interpretation of an: Plain X-Ray (Chest x-ray grossly negative) Radiology Impression Discussion of test interpretation with radiology: I have reviewed the radiologist's reading. Chronic Conditions Asthma Social Determinants Patient?s care significantly limited by Social Determinants of Health including: Problems related to primary support group Discharge Plan Discharge Clinical Impression: Asthma Patient Disposition: Home, Self-Care Instructions: Asthma (DC) Prescriptions: New prednisone 20 mg tablet 40 mg PO DAILY Qty: 10 0RF albuterol sulfate 90 mcg/actuation aerosol powdr breath activated 2 inh inhalation Q6H PRN (Reason: shortness of breath) Qty: 1 0RF No Action lisinopril 2.5 mg Tablet 2.5 mg PO DAILY ondansetron 8 mg tablet,disintegrating 8 mg PO Q8H PRN (Reason: nausea and vomiting) Qty: 20 0RF docusate sodium [Colace] 100 mg capsule 100 mg PO BID PRN (Reason: constipation) Qty: 30 0RF Referrals: [facility] [Physician, Medical] - 12/25/24 Stand Alone Forms: Work/School Release Print Language: Malay
--- NOTE | 2024-12-22 12:27 | PC.NURSE ---
24 F presents to ED with SOB since tuesday, cough unproductive. Pt has a hx of asthma from a kid but no recent asthma. Pt c/o pain from coughing. A+OX4, calm, cooperative. RR even but a bit shallow, lower lobes sound tight with a wheeze.
[2024-12-22 12:31] LABS: COVID-19 Test Negative (Negative); IDNOW Serial# 152EDE1D; IDNOW Serial# 16C4AD1C; Influenza B2 Negative (Negative)
[2024-12-22] MEDS: Albuterol Sulfate 2.5 MG, Albuterol Sulfate (0.083%) 2.5 MG 5 MG INHALE (12:37)
[2024-12-22 12:40] VITALS: PULSE 70; RESP 19; O2SAT 99
[2024-12-22 14:10] VITALS: BP 136/63; PULSE 87; RESP 20; TEMP 36.7; O2SAT 98
[2024-12-22 14:22] LABS: UPreg QC Valid YES
[2024-12-22 16:54] VITALS: BP 119/57; PULSE 90; RESP 18; TEMP -17.7; TEMP 0; O2SAT 99
== END 2024-12-22 17:02 | disposition home or self-care (01) ==
PROVIDERS: Physician Assistant; Emergency Provider Emergency Medicine Emergency Medical Services
DX: J45.909 Unspecified asthma, uncomplicated (principal); R06.02 Shortness of breath; R05.9 Cough, unspecified; Z79.899 Other long term (current) drug therapy; Z11.52 Encounter for screening for COVID-19
CPT/HCPCS: 71046; 81025; 87502; 87635; 94640; 99284; 99285

== ENCOUNTER → 2024-12-22 12:00 | Outpatient (BNV) | payer OTHER, SELFPAY | PROVIDERS: Emergency Provider Emergency Medicine Emergency Medical Services; Visit Provider Radiology Diagnostic Radiology | DX: R05.9 Cough, unspecified (principal); R06.02 Shortness of breath | CPT/HCPCS: 71046 ==